=== PATIENT | female | born 1980 | race Asian ===

== ENCOUNTER 2020-10-17 11:36 | Outpatient (REF) | payer OTHER, SELFPAY ==
--- NOTE | ~2020-10-17 | MM_ITS ---
EXAMINATION: MM SCREENING DIGITAL BREAST TOMOSYNTHESIS, BILATERAL CLINICAL INFORMATION: Screening. Asymptomatic. Age 39. No known family history breast cancer. The lifetime risk of breast cancer based on the Tyrer-Cuzick Model is 10%. COMPARISON: Outside right mammography and right breast ultrasound 10/19/2017 ([facility]). Images from outside right breast ultrasound-guided biopsy(10/30/2017, [facility]). TECHNIQUE: Digital breast tomosynthesis is performed in both the craniocaudal and mediolateral oblique views along with computer-aided detection (CAD). Synthesized 2D images are generated from the tomosynthesis. Additional right MLO view is provided. FINDINGS: The breasts are heterogeneously dense, which may obscure small masses (ACR BI-RADS breast composition Category c). There is no significant mass or architectural abnormality or abnormal calcifications. No biopsy clip marker again demonstrated. The axilla and skin contours are unremarkable. MM/MM tomosynthesis screening BI IMPRESSION: No mammographic evidence of malignancy. ASSESSMENT: BI-RADS 1: Negative RECOMMENDATION: Routine annual mammography screening. This patient's information was entered into a reminder system with a target due date for their next mammogram.
== END 2020-10-17 11:37 | disposition home or self-care (01) ==
LOC: HO.MAMMO 11:36
PROVIDERS: Visit Provider Nurse Practitioner Family
DX: Z12.31 Encounter for screening mammogram for malignant neoplasm of breast (principal)
CPT/HCPCS: 77063; 77067

== ENCOUNTER 2023-04-01 09:38 | Outpatient (REF) | payer OTHER, SELFPAY ==
[2023-04-01 11:25] LABS: MANUAL DIFF FLAG NO
[2023-04-01 11:27] LABS: Basophils Percent Auto 0.7 % (0-2); Eosinophils Absolute Auto 0.2 X10*3/uL (0.0-0.4); Hematocrit 39.2 % (37.0-47.0); Hemoglobin 13.1 g/dl (12.0-16.0); Imm Gran Abs Auto 0.01 X10*3/uL (0.00-0.03); Imm Gran Pct Auto 0.2 % (0.0-0.4); Lymphocytes Absolute Auto 1.3 X10*3/uL (1.2-4.9); Lymphocytes Percent Auto 31.8 % (20-40); Mean Corpuscular HGB Conc 33.4 g/dl (31.0-35.0); Mean Corpuscular Hemoglobin 27.8 pg (27.0-33.0); Mean Corpuscular Volume 83.2 fL (80.0-98.0); Mean Platelet Volume 10.1 fL (9.4-12.3); Monocytes Absolute Auto 0.3 X10*3/uL (0.1-1.2); Monocytes Percent Auto 6.9 % (2-11); Neutrophils Absolute Auto 2.4 x10*3/uL (2.0-8.3); Neutrophils Percent Auto 56.4 % (45-73); Platelet Count 209 X10*3/uL (160-400); Red Blood Count 4.71 X10*6/uL (4.20-5.50); Red Cell Distribution Width 12.1 % (11.0-16.0); White Blood Count 4.2 X10*3/uL (4.8-10.8)
[2023-04-01 11:37] LABS: Estimated Average Glucose 108 mg/dL; Hemoglobin A1c % 5.4 %
[2023-04-01 12:10] LABS: Syphilis Screen Nonreactive (Nonreactive)
[2023-04-01 12:16] LABS: ~Hepatitis C Antibody Nonreactive (Nonreactive)
[2023-04-01 12:25] LABS: HBS Num1 593.33 mIU/mL (0-7.99); HBc Num1 6.11 S/CO (0.00-0.79); HBsAGNum1 0.41 S/CO (0.00-0.99); HIV AB/AG Nonreactive (Nonreactive); HIV Num 1 0.05 S/CO (0.00-0.99); Hepatitis B Surface Antigen Negative (Negative); ~Hepatitis B Surface Antibody REACTIVE (Nonreactive)
[2023-04-01 12:27] LABS: Alanine Aminotransferase 14 U/L (0-31); Albumin Level 4.3 g/dL (3.5-5.0); Alkaline Phosphatase 59 U/L (39-117); Anion Gap 11 (12-20); Aspartate Amino Transferase 19 U/L (5-31); Bilirubin Total 0.5 mg/dL (0.0-1.0); Blood Urea Nitrogen 17 mg/dL (9-16); Calcium 9.1 mg/dL (8.4-10.2); Carbon Dioxide 24 mmol/L (22-29); Chloride 107 mmol/L (96-108); Cholesterol 194 mg/dL; Estimated Glomerular Filt Rate > 60; Glucose Random 89 mg/dL (60-115); HDL Cholesterol 83 mg/dL; LDL Cholesterol Calculated 100 mg/dl; Potassium 3.9 mmol/L (3.3-5.1); Sodium 138 mmol/L (135-145); TSH reflex Free T4 1.85 uIU/mL (0.32-4.0); Triglycerides 56 mg/dL
[2023-04-01 13:25] LABS: HBc Num2 6.21 S/CO; HBc Num3 6.12 S/CO; Hepatitis B Core Antibody Reactive (Nonreactive)
[2023-04-01 18:23] LABS: CT PCR NOT DETECTED (Not Detect.); NG PCR NOT DETECTED (Not Detect.)
== END 2023-04-01 09:39 | disposition home or self-care (01) ==
LOC: HO.HHCL 09:38
PROVIDERS: Visit Provider Student in an Organized Health Care Education/Training Program
DX: Z00.00 Encounter for general adult medical examination without abnormal findings (principal)
CPT/HCPCS: 0353U; 80053; 80061; 83036; 84443; 85025; 86704; 86706; 86780; 86803; 87340; 87389

== ENCOUNTER 2024-04-01 16:27 | Outpatient (REF) | payer OTHER, SELFPAY ==
[2024-04-02 06:31] LABS: CT PCR NOT DETECTED (Not Detect.); NG PCR NOT DETECTED (Not Detect.)
== END 2024-04-01 16:28 | disposition home or self-care (01) ==
LOC: HO.HHCLNP 16:27
PROVIDERS: Visit Provider Student in an Organized Health Care Education/Training Program
DX: Z00.00 Encounter for general adult medical examination without abnormal findings (principal)
CPT/HCPCS: 87491; 87591

== ENCOUNTER 2024-06-08 11:59 | Outpatient (REF) | payer OTHER, SELFPAY ==
--- NOTE | ~2024-06-08 | MM_ITS ---
EXAMINATION: MM SCREENING DIGITAL BREAST TOMOSYNTHESIS, BILATERAL CLINICAL INFORMATION: Screening. Asymptomatic. COMPARISON: Mammography: Comparison is made with available priors TECHNIQUE: Digital breast mammography with tomosynthesis is performed in both the craniocaudal and mediolateral oblique views along with computer-aided detection (CAD). FINDINGS: The breasts are heterogeneously dense, which may obscure small masses (ACR BI-RADS breast composition Category c). There are no significant masses, abnormal calcifications, or other abnormalities. MM/MM tomosynthesis screening BI IMPRESSION: No mammographic evidence of malignancy. ASSESSMENT: BI-RADS BI-RADS 1 - Negative RECOMMENDATION: Routine annual mammography screening. 1 year F/U This examination should not preclude the clinical evaluation of a suspicious palpable abnormality. This patient's information was entered into a reminder system with a target due date for their next mammogram. Electronically signed by: Julia Mccarthy DO 06/20/2024 04:15 PM HALLE
== END 2024-06-08 12:00 | disposition home or self-care (01) ==
LOC: HO.MAMMO 11:59
PROVIDERS: PCP Student in an Organized Health Care Education/Training Program; Visit Provider Student in an Organized Health Care Education/Training Program
DX: Z12.31 Encounter for screening mammogram for malignant neoplasm of breast (principal)
CPT/HCPCS: 77063; 77067

== ENCOUNTER → 2024-06-08 12:01 | Outpatient (BNV) | payer OTHER, SELFPAY | PROVIDERS: PCP Student in an Organized Health Care Education/Training Program; Visit Provider Internal Medicine | DX: Z12.31 Encounter for screening mammogram for malignant neoplasm of breast (principal) | CPT/HCPCS: 77063; 77067 ==

== ENCOUNTER 2024-09-19 11:33 | Outpatient (REF) | payer OTHER, SELFPAY ==
--- OUTSIDE RECORDS SUMMARY | 2024-09-19 12:53 | XMS_ITS | Encounter Summary ---
Author Organization [employer] Address [address] [place] [address] [place] [address] Care Team Providers Care Special Procedure Technologist Name Role Phone Farhana Jordan MD Primary Care Pro vider Reason for Visit * Reason Onset Date Comments Nurse Triage 08/31/2024 Encounter Details Date Type Department Care Team ([facility] st Contact Info) Description 08/31/[address] [facility] MEDICINE [address], [place] [phone] Farhana Jordan MD [address] [place] [address] Nurse Triage Social History Tobacco Use Types Packs/Day Years Used Date Smoking Tobacco: Never Passive Smoke Exposure: Never Smokeless Tobacco: Never Alcohol Use Standard Drinks/Week Comments Yes 0 (1 standard drink = 0.6 oz pur e alcohol) social Depression Answer Date Recorded Patient Health Questionnaire-9 Score 0 03/23/2023 Housing Stability Answer Date Recorded What is your housing situation today? I have janine glover 04/01/[address] you li ve. Do you have problems with any of the following? None of the above 04/01/2024 Food Insecurity Answer Date Recorded Within the past 12 months, y ou worried that your food would run out before you got money to buy more: Never True 03/22/2024 Within the past 12 months,th e food you bought just didn't last and you didn't have enough money to get more: Never True 01/2024 Transportation Answer Date Recorded In the past 12 months, has l ack of transportation kept you from medical appts, meetings, work or from getting things needed for daily living? No 03/22/2024 Utilities Answer Date Recorded In the past 12 months, has t he electric, gas, oil or water company threatened to shut off services in your home? No 03/22/2024 Depression Answer Date Recorded Patient Health Questionnaire-2 Score 0 03/23/2023 Internet Access Answer Date Recorded Internet Access Q1 Yes 04/18/2024 Internet Access Q2 Not on file 04/18/2024 Comments Unknown Sex and Gender Information Value Date Recorded Sex Assigned at Female 06/16/2022 10:28 AM EDT Legal Sex Female 10:28 AM EDT Gender Identity Female 06/16/2022 10:28 AM EDT Sexual Orientation Straight 03/23/2023 9 :43 AM EDT documented as of this encounter Miscellaneous Notes * Telephone Encounter - Amber Rai RN - 08/31/2024 2:13 PM EST called pt to triage, spoke to pt. pt states having a lot of intense itching all over her skin. pt states her dog has similar skin issues and thinks she got it from him. pt denies signs of fleas or other associated concerns. pt denies actual rash, open areas, or fevers. given appt Thursday with blue team provider at 3:00 for exam. advised home care: rest, cool compresses, and OTC anti itch cream. also advised to avoid new products or strong soaps. pt understands and agrees with plan. insurance verified. Protocol Used: Itching - Widespread (Adult) Protocol-Based Disposition: See in Office or Video Visit within 3 Days Video visit offer not recorded Positive Triage Question: * Widespread itching and cause unknown and present > 48 hours * All higher-acuity triage questions were negative Care Advice Discussed: * Reassurance and Education - Widespread Itching * Reassurance and Education - Itching From Dry Air * Don't Scratch * Avoid Soaps * Avoid Triggers * Moisturize the Skin With Lotion * Reducing the Itch - Oatmeal (Aveeno) Bath * Antihistamine Medicines for Severe Itching * Reasons To Call Back - Rash occurs - Itching becomes worse or lasts over 48 hours - You become worse * Telephone Encounter - Adeline Garcia - 08/31/2024 1:06 PM EST Symptom: Skin Infection, Itching, Bleeding (when scratch) - Caller Reports Outcome: Schedule a same-day appointment or talk to a nurse or provider today Reason: Caller denied all higher acuity questions The caller accepted this outcome. [phone] documented in this encounter Plan of Treatment Upcoming Encounters Date Type Department Care Team (Late st Contact Info) Description 09/30/2024 1:45 PM EST Office Visit [facility] MEDICINE [address], [place] [phone] Maribeth Luther FNP [address] [place], [place] [phone] documented as of this encounter Visit Diagnoses Not on filedocumented in this encounter Additional Health Concerns Assessment Noted Time PHQ-9 Depression Total Score: 0 03/23/20 9:28 AM EDT documented as of this encounter Care Teams Special Procedure Technologist Relationship Specialty Start Date End Date Farhana Jordan MD [address] [place], [place] [phone] PCP - General Internal Medicine 02/11/23 documented as of this encounter
--- OUTSIDE RECORDS SUMMARY | 2024-09-19 12:53 | XMS_ITS | Encounter Summary ---
Author Organization [employer] Address [address] [place] [address] Care Team Providers Care Partnership Marketing Manager Name Role Phone Farhana Jordan MD Primary Care Pro vider Encounter Details Date Type Department Care Team (Latest Contact Info) Description 09/19/2024 Travel Social History Tobacco Use Types Packs/Day Years Used Date Smoking Tobacco: Never Passive Smoke Exposure: Never Smokeless Tobacco: Never Alcohol Use Standard Drinks/Week Comments Yes 0 (1 standard drink = 0.6 oz pur e alcohol) social Depression Answer Date Recorded Patient Health Questionnaire-9 Score 0 03/23/2023 Housing Stability Answer Date Recorded What is your housing situation today? I have janine belen 04/01/[address] you li [...] 10:28 AM EDT Sexual Orientation Straight 03/23/2023 9: 43 AM EDT documented as of this encounter Plan of Treatment Upcoming Encounters Date Type Department Care Team (Late st Contact Info) Description 09/30/2024 1:45 PM EST Office Visit [facility] MEDICINE [address] [place], [place] [phone] Maribeth Luther FNP [address] [place], [place] [phone] documented as of this encounter Visit Diagnoses Not on filedocumented in this encounter Additional Health Concerns Assessment Noted Time PHQ-9 Depression Total Score: 0 03/23/20 9:28 AM EDT documented as of this encounter Care Teams Partnership Marketing Manager Relationship Specialty Start Date End Date Farhana Jordan MD [address] [place], [place] [phone] PCP - General Internal Medicine 02/11/23 documented as of this encounter
--- OUTSIDE RECORDS SUMMARY | 2024-09-19 12:53 | XMS_ITS | Encounter Summary ---
Author Organization [employer] Address [address] [place] [address] 7t [place] [address] Care Team Providers Care Hereditary Cancer Program Coordinator Name Role Phone Farhana Jordan MD Primary Care Pro vider Reason for Visit * Reason Comments Itching Encounter Details Date Type Department Care Team ([facility] st Contact Info) Description 09/02/2024 3:00 PM EST Office Visit [facility] MEDICINE [address] [place] [address] Maribeth Luther FNP [address] [place] [address] Flea bite, initial encounter (Primary Dx); Wart of hand; Tinea manus Social History Tobacco Use Types Packs/Day Years [...] AM EDT documented as of this encounter Last Filed Vital Signs Vital Sign Reading Time Taken Comments Blood Pressure 109/63 09/02/2024 3:15 PM EST Pulse 76 09/02/2024 3:15 PM EST Temperature 36.9 ??C (98.4 ??F) 09/02/2024 3:15 PM ES T Respiratory Rate 16 09/02/2024 3:15 PM EST Oxygen Saturation 99% 09/02/2024 3:15 PM EST Inhaled Oxygen Concentration - - Weight 64 kg (141 lb 3.2 oz) 09/02/2024 3:15 PM EST Height - - Body Mass Index 25.01 04/01/2024 11:11 AM EDT documented in this encounter Progress Notes * MERARY Piper - 09/02/2024 3:00 PM EST Omero Cheng is a 43 y.o. female who presents for a acute visit. Patient presents to the clinic with report of itchy skin that started on both hand but spread to other parts of the body including bilateral lower extremity. She reports the skin starts with an itchywhich later develops into little bump with fluid which opens up after scratching. Reports the bumpsfirst appeared approximately 2 months ago but has gotten worse. The pruritic lesions started after caring for her 2 dogs infested with fleas and believes her symptoms are from flea bites while treating and bathing he dogs. Reports her dogs are infested by fleas and had opened skin related to intense scratching. Denies nobody else in the house have similar lesions. Omero apply regular body lotio n with no no relief. She reports one of the dogs is flea free while the other is still being treated. Denies fever, nausea. tenderness, swollen lymph nodes or known insect bites. Denies new food, perfume, body cream, detergent, clothing or food. At this visit also present with a pea size rough dome shaped bump on the third finger bed of the right hand and thick skin at the side of same finger. Reports she had used OTC topical salicylic with some effect and also cut the skin but grows back . Same nail also presents with fungal infection which she denies using any medication Patient Active Problem List Diagnosis Healthcare maintenance Bilateral bunions Amenorrhea Wart of hand Tinea manus Flea bite No Known Allergies Current Outpatient Medications: cephalexin (Keflex) 500 MG capsule, Take 1 capsule (500 mg) by mouth 2 times daily for 7 days., Disp: 14 capsule, Rfl: 0 hydrocortisone 2.5 % cream, Apply topically if needed for rash. Apply a small amount to individual lesions, Disp: 28 g, Rfl: 0 ketoconazole (NIZOral) 2 % cream, Apply topically Once per day for 14 days., Disp: 28 g, Rfl: 0 salicylic acid-lactic acid 17 % external solution, Apply topically Once per day., Disp: 10 mL, Rfl:1 Review of Systems Constitutional: Negative for appetite change, chills and fever. HENT: Negative for sore throat. Respiratory: Negative for cough, shortness of breath and wheezing. Cardiovascular: Negative for chest pain, palpitations and leg swelling. Skin: Positive for rash. Pruritic rash Neurological: Negative for dizziness and weakness. Psychiatric/Behavioral: Negative for sleep disturbance and suicidal ideas. Vitals: 09/02/24 1515 BP: 109/63 Pulse: 76 Resp: 16 Temp: 98.4 ??F (36.9 ??C) TempSrc: Oral SpO2: 99% Weight: 141 lb 3.2 oz (64 kg) Physical Exam Constitutional: General: She is not in acute distress. Appearance: She is normal weight. She is not ill-appearing. Cardiovascular: Rate and Rhythm: Normal rate. Pulses: Normal pulses. Pulmonary: Effort: Pulmonary effort is normal. Breath sounds: Normal breath sounds. No wheezing. Skin: General: Skin is warm. Findings: Erythema and lesion present. Neurological: General: No focal deficit present. Mental Status: She is alert and oriented to person, place, and time. Psychiatric: Mood and Affect: Mood normal. Behavior: Behavior normal. Problem List Items Addressed This Visit Wart of hand Current Assessment & Plan Pea size rough dome shaped bump on the finger bed of the right hand with tiny black dots Plan Apply salicylic acid to wart as prescribed Wash hands regularly Do not bite nails or pick at your curticles Wear protective gloves if you have your hands in water for a long period. Do not share personal items like towels or nail clippers Return in 4 weeks for cryotherapy Relevant Medications salicylic acid-lactic acid 17 % external solution Tinea manus Relevant Medications ketoconazole (NIZOral) 2 % cream Flea bite - Primary Current Assessment & Plan Small raised erythematous pruritic lesions in clusters of two or more lesions Vesicular papules in Breakfast, lunch, and dinner pattern on upper and lower extremities. Open blisters with bite center.No oozing, tenderness or pain surrounding the bite area. Plan Wash affected area with water and mild soap Apply cream as prescribed Avoid scratching the bites Take your pet to see the vet for flea treatment Get rid of fleas from the home Call the office if you experience fever, lymphadenitis, and feeling worse Follow up in 3-4 weeks Relevant Medications cephalexin (Keflex) 500 MG capsule hydrocortisone 2.5 % cream [facility] STEEL [employer] BUSTER Attestation STEEL [employer] BUSTER Resident Attestation: Patient was seen and evaluated by Maribeth REAGAN , in collaboration with Phoebe REAGAN who has reviewed my assessment and plan. I, Phoebe REAGAN, have reviewed the resident's note and agree with the assessment & plan of care as documented above. documented in this encounter Miscellaneous Notes * Assessment & Plan Note - MERARY Piper - 09/03/2024 9:28 AM ESTAssociated Problem(s): Tinea manus Apply medication as prescribed * Assessment & Plan Note - MERARY Piper - 09/03/2024 9:12 AM ESTAssociated Problem(s): Wart of hand Pea size rough dome shaped bump on the finger bed of the right hand with tiny black dots Plan Apply salicylic acid to wart as prescribed Wash hands regularly Do not bite nails or pick at your curticles Wear protective gloves if you have your hands in water for a long period. Do not share personal items like towels or nail clippers Return in 4 weeks for cryotherapy * Assessment & Plan Note - MERARY Piper - 09/03/2024 8:40 AM ESTAssociated Problem(s): Flea bite Small raised erythematous pruritic lesions in clusters of two or more lesions Vesicular papules in Breakfast, lunch, and dinner pattern on upper and lower extremities. Open blisters with bite center. No oozing, tenderness or pain surrounding the bite area. Plan Wash affected area with water and mild soap Apply cream as prescribed Avoid scratching the bites Take your pet to see the vet for flea treatment Get rid of fleas from the home Call the office if you experience fever, lymphadenitis, and feeling worse Follow up in 3-4 weeks documented in this encounter Plan of Treatment Upcoming Encounters Date Type Department Care Team (Late st Contact Info) Description 09/30/2024 1:45 PM EST Office Visit [facility] MEDICINE [address] [place] [address] Maribeth Luther FNP [address] [place] [address] documented as of this encounter Visit Diagnoses Diagnosis Flea bite, initial encounter- Primary Wart of hand Tinea manus Dermatophytosis of hand documented in this encounter Additional Health Concerns Assessment Noted Time PHQ-9 Depression Total Score: 0 03/23/20 9:28 AM EDT documented as of this encounter Care Teams Hereditary Cancer Program Coordinator Relationship Specialty Start Date End Date Farhana Jordan MD [address] [place] [id number] PCP - General Internal Medicine 02/11/23 documented as of this encounter
--- OUTSIDE RECORDS SUMMARY | 2024-09-19 12:53 | XMS_ITS | Encounter Summary ---
Author Organization [employer] Address [address] [place] [address] [place] [address] Care Team Providers Care Talent Acquisition Sourcer Name Role Phone Farhana Jordan MD Primary Care Pro vider Reason for Visit * Reason Onset Date Comments Nurse Triage 09/19/2024 Encounter Details Date Type Department Care Team ([facility] st Contact Info) Description 09/19/2024 Telephone [facility] MEDICINE [address] [place], [place] [phone] Farhana Jordan MD [address] [place] [address] Nurse Triage Social History Tobacco Use Types [...] encounter Miscellaneous Notes * Telephone Encounter - Maisha Davis LPN - 09/19/2024 9:20 AM EST Triage call returened to patient who reports worsening itchiness and spreading areas on all over on body. Previousy seen for Flea bites and current treatment is not helping. Patient is penind callfrom Dermatology but skin now open and bleeding. Patient reports dogs in home are clear post treatment and that it is only her that has bites. Reports that she treated the home as well. no affected. Disposition reviewed and patient in agreement with plan.ASK/ at 1045am. Protocol Used: Rash or Redness - Widespread (Adult) Protocol-Based Disposition: See in Office or Video Visit Today Video visit not offered Positive Triage Questions: * Severe itching * Patient wants to be seen * All higher-acuity triage questions were negative Care Advice Discussed: * Reasons To Call Back - You become worse * Telephone Encounter - Lefyt Jordan - 09/19/2024 8:36 AM EST TC from pt reports was seen for skin itchiness on 09/02 with [employer] Maribeth . Pt states hydrocortisone 2.5 % cream is not working and symptoms are worsening . Pt skin now is bleeding . documented in this encounter Plan of Treatment Upcoming Encounters Date Type Department Care Team (Late st Contact Info) Description 09/30/2024 1:45 PM EST Office Visit [facility] MEDICINE [address] [place], [place] [phone] Maribeth Luther FNP [address] [place], [place] [phone] documented as of this encounter Visit Diagnoses Not on filedocumented in this encounter Additional Health Concerns Assessment Noted Time PHQ-9 Depression Total Score: 0 03/23/20 9:28 AM EDT documented as of this encounter Care Teams Talent Acquisition Sourcer Relationship Specialty Start Date End Date Farhana Jordan MD [address] [place], [place] [phone] PCP - General Internal Medicine 02/11/23 documented as of this encounter
--- OUTSIDE RECORDS SUMMARY | 2024-09-19 12:53 | XMS_ITS | Encounter Summary ---
Author Organization [employer] Address [address] [place] [address] 7 [place] [address] Care Team Providers Care Remedial Teacher Name Role Phone Farhana Jordan MD Primary Care Pro vider Reason for Referral * Consultation (Routine) - Authorized Specialty Diagnoses / Procedures Referred By Perfecto flannery Referred To Contact Family Medicine Diagnoses yuki Cummins [place], FNP [address] [place] [address] Phone: tel: fax: Referral ID Status Reason Start Date Expiration Date Visits Requested Visits Authorized [id number] Authorized Specialty Services Required 09/15/2024 09/15/2025 1 1 Encounter Details Date Type Department Care Team ([facility] st Contact Info) Description 09/15/2024 Orders Only [facility] MEDICINE [address] [place] [address] Maribeth Luther FNP [address] [place] [address] yuki Cummins (Primary Dx) Social History Tobacco Use Types Packs/Day Years [...] AM EDT documented as of this encounter Progress Notes * MERARY Piper - 09/15/2024 11:00 AM EST Patient calling to report completion of treatment but no improvement. Lesions are still all over the bite area with drainage. Referred to dermatology documented in this encounter Plan of Treatment Upcoming Encounters Date Type Department Care Team (Late st Contact Info) Description 09/30/2024 1:45 PM EST Office Visit [facility] MEDICINE [address] [place] [address] Maribeth Luther FNP [address] [place], [place] [phone] Scheduled Referrals Name Type Priority Associated Diagnoses Orde r Schedule Referral to [facility] Derm Skin Adult Outpatient Referral Routine Flea bite, sequela Expected: 09/15/2024 (Approximate), Expires: 09/15/2025 documented as of this encounter Visit Diagnoses Diagnosis Flea bite, sequela- Primary documented in this encounter Additional Health Concerns Assessment Noted Time PHQ-9 Depression Total Score: 0 03/23/20 23 9:28 AM EDT documented as of this encounter Care Teams Remedial Teacher Relationship Specialty Start Date End Date Farhana Jordan MD [address] [place] [address] PCP - General Internal Medicine 02/11/23 documented as of this encounter
--- OUTSIDE RECORDS SUMMARY | 2024-09-19 12:53 | XMS_ITS | Clinical Summary ---
Author Organization [employer] Address [address] [place] [address] 7t [place] [address] Care Team Providers Care Manager Of Case Management Name Role Phone Farhana Jordan MD Primary Care Pro vider Allergies No known active allergies Medications salicylic acid-lactic acid 17 % external solutionIndica tions:Wart of hand Apply topically Once per day. 10 mL 1 5 10/02/19 25 Active triamcinolone (Kenalog) 0.1 % creamIndicatio ns:Rash Apply topically if needed in the morning and at bedtime (pain and swelling). 30 g 2 5 Active mupirocin (Bactroban) 2 % ointmentIndica tions:Rash Apply topically 3 times daily for 10 days. 22 g 5 09/29/19 25 Active diphenhydrAMIN E (BENADryl) 25 MG tabletIndicati ons:Itching Take 1 tablet (25 mg) by mouth if needed at bedtime for itching. 30 tablet 5 10/20/19 25 Active cephalexin (Keflex) 500 MG capsuleIndicat ions:Flea bite, initial encounter Take 1 capsule (500 mg) by mouth 2 times daily for 7 days. 14 capsule 5 09/09/19 25 ketoconazole (NIZOral) 2 % creamIndicatio ns:Tinea manus Apply topically Once per day for 14 days. 28 g 5 09/16/19 25 hydrocortisone 2.5 % creamIndicatio ns:Flea bite, initial encounter Apply topically if needed for rash. Apply a small amount to individual lesions 28 g 5 09/19/19 25 Discontinu ed(Alterna te therapy) Active Problems Problem Noted Date Diagnosed Date Flea bite 09/03/2024 Assessment & Plan (09/03/2024 8:40 AM EST): Small raised erythematous pruritic lesions in clusters [...] feeling worse Follow up in 3-4 weeks Wart of hand 09/02/2024 Assessment & Plan (09/03/2024 9:26 AM EST): Pea size rough dome shaped bump on [...] clippers Return in 4 weeks for cryotherapy Tinea manus 09/02/2024 Assessment & Plan (09/03/2024 9:28 AM EST): Apply medication as prescribed Amenorrhea 04/01/2024 Healthcare maintenance 03/24/2023 Assessment & Plan (04/25/2023 12:27 PM EDT): -Per pt had neg TB test years ago -Pap Smear 09/2020: neg / neg HPV. Denies Hx of abnormal Pap smear, to repeat in 5 y from last one. -MM: 10/2020: dense BIRADS 1. The lifetime risk of breast cancer based on the Tyrer-Cuzick Model is 10%. -MM: Referred already, pending to have image. I will call pt w result, otherwise pt will call clinic 1 wk after test is done to go over report. -Vaccines: s/p Covid x2, Biv x1, Tdap 2022, HPV x1 08/2020 - gave info of vaccine clinic if interested in completing HPV vaccination series. Prescribed today to our pharmacy by pt request. -Referred to forestry laborer for annual eye exam - pending to schedule apt. ------ -03/2023 WBC 4.2 (ANC 2.4k) w normal Hb and PLT - pt will return to lab in 3 mo to repeat CBC to monitor slightly low WBC ---I will call pt w result, otherwise pt will call clinic 1 wk after test is done to go over results. Assessment & Plan (03/24/2023 6:23 AM EDT): -Per pt had neg TB test years ago -Pap Smear 09/2020: neg / neg HPV. Denies Hx of abnormal Pap smear, to repeat in 5 y from last one. -MM: 10/2020: dense BIRADS 1. The lifetime risk of breast cancer based on the Tyrer-Cuzick Model is 10%. -MM: Referred today. -labs x annual exam will RTC in fasting -pt agreed to have STI testing including HIV to have for baseline -Vaccines: s/p Covid x2, Biv x1, Tdap today, HPV x1 08/2020 - gave info of vaccine clinic if interested in completing HPV vaccination series. -Referred to forestry laborer today for annual eye exam Bilateral bunions 03/24/2023 Assessment & Plan (04/25/2023 12:23 PM EDT): Bilateral bunions causing pain. -Advise to avoid high heels and tight shoes. -Referred to child care center administrator - pt pending to call for apt. Assessment & Plan (03/24/2023 6:23 AM EDT): Bilateral bunions causing pain. -Advise to avoid high heels and tight shoes. -Referred to child care center administrator today. Encounters Date Type Department Care Team Description 09/19/2024 10:45 AM EST Office Visit [facility] [address] [place] [phone] Sindhu Walker MD Rash (Primary Dx); Itching 09/19/2024 Travel 09/19/2024 Telephone [facility] [address] [place] [address] Farhana Jordan MD Nurse Triage 09/15/2024 Orders Only [address] [address] Maribeth Luther FNP Flea bite, sequela (Primary Dx) 09/13/[address] [address] Farhana Jordan MD Medication Question 09/02/2024 3:00 PM EST Office Visit [address] [address] Maribeth Luther, MERARY Flea bite, initial encounter (Primary Dx); Wart of hand; Tinea manus 08/31/[address] [address] Farhana Jordan MD Nurse Triage 07/12/[address] [address] Kendy Sanders MA chart prep from Last 3 Months Immunizations Name Administration Dates Next Due HPV 9-Valent 09/04/2020 Influenza injectable quadriv alent IIV4 with preservative 06/07/2020 Influenza injectable quadrivalent preservative f ree 07/31/2022,05/17/2020 Tdap 03/23/2023 Family History Medical History Relation Name Comments HTN Father Relation Name Status Comments Father Social History Tobacco Use Types Packs/Day Years Used Date Smoking Tobacco: Never Passive Smoke Exposure: Never Smokeless Tobacco: Never Tobacco Cessation:Counseling Given: Not Answered Alcohol Use Standard Drinks/Week Comments Yes 0 (1 standard drink = 0.6 oz pur e alcohol) social Depression Answer Date Recorded Patient Health Questionnaire-9 Score 0 03/23/2023 Housing Stability Answer Date Recorded What is your housing situation today? I have janinevianey glover 04/01/[address] you [...] Orientation Straight 03/23/2023 9: 43 AM EDT Last Filed Vital Signs Vital Sign Reading Time Taken Comments Blood Pressure 126/80 09/19/2024 10:56 AM EST Pulse 73 09/19/2024 10:56 AM EST Temperature 36.7 ??C (98 ??F) 09/19/2024 10:56 AM EST Respiratory Rate 20 09/19/2024 10:56 AM EST Oxygen Saturation 98% 09/19/2024 10:56 AM EST Inhaled Oxygen Concentration - - Weight 61.8 kg (136 lb 3.2 oz) 09/19/2024 10:56 AM EST Height 165.1 cm (5' 5 ) 09/19/2024 10:56 AM EST Body Mass Index 22.66 09/19/2024 10:56 AM EST Plan of Treatment Upcoming Encounters Date Type Department Care Team (Late st Contact Info) Description 09/30/2024 1:45 PM EST Office Visit [facility] [address] [place] [address] Maribeth Luther FNP [address] [place] [address] Health Maintenance Due Date Last Done Comments Alcohol/Substance Use Screening 1992 Family Planning (PISQ) 11/17/1995 Hepatitis B Vaccines (1 of 3 - 19+ 3-dose series) 11/17/1999 HPV Vaccines (2 - 3-dose SCDM series) 10/02/2020 09/04/2020 Pap Smear 09/21/2023 09/21/2020 Depression Screening 03/23/2024 03/23/2023, 03/23/20 23 COVID-19 Vaccine ( season) 2024 08/03/2023, 07/31/2022, 06/30/2021, Additional history exists Influenza Vaccine (#1) 2024 , 06/07/2020, 05/17/2020 SDOH Screening 03/22/2025 03/22/2024 Tobacco Screening 09/19/2025 09/19/2024 Cervical Cancer Screening 09/21/2025 HPV/Cotest 09/21/2025 09/21/2020 Mammogram 06/08/2026 06/08/2024, 03/0 10/2020, 10/17/2020 Zoster Vaccines (1 of 2) 2030 DTaP/Tdap/Td Vaccines (2 - Td or Tdap) 03/23/2033 03/23/2023 RSV Patients and Patients Aged 60 years or older (1 - 1-dose 75+ series) 11/17/2055 HIV Screening Completed 04/01/2023 Hepatitis C Screening Completed 04/01/2023 HIB Vaccines Aged Out No longer eligi ble based on patient's age to complete this topic Hepatitis A Vaccines Aged Out No long er eligible based on patient's age to complete this topic IPV Vaccines Aged Out No longer eligi ble based on patient's age to complete this topic Meningococcal Vaccine Aged Out No shaun bettina eligible based on patient's age to complete this topic Pneumococcal Vaccine: Pediatrics (0 to 5 Years) and At-Risk Patients (6 to 49) Years) Aged Out No longer eligible based on patient's age to complete this topic RSV under 20 months Aged Out No longe r eligible based on patient's age to complete this topic Rotavirus Vaccines Aged Out No longer eligible based on patient's age to complete this topic Procedures Procedure Name Priority Date/Time Associated Diagnosis Comments BI MAMMOGRAM SCREENING TOMOSYNTHESIS BILATERAL Routine 06/08/2024 12:01 PM EDT Breast cancer screening by mammogram HEPATITIS C ANTIBODY REFLEX Routine 04/01/2023 9:45 AM EDT HIV ANTIBODY/ANTIGEN ([place] DPH) Routine 04/01/2023 9:45 AM EDT HPV MRNA E6/E7 Routine 09/21/2020 3:54 PM EST THINPREP PAP Routine 09/21/2020 3:54 PM EST from Last 3 Months or Most Recently Relevant to Health Maintenance Results * BI Mammogram Screening Tomosynthesis Bilateral (06/08/2024 12:01 PM EDT) Anatomical Region Laterality Modality Breast Bilateral Mammography 06/08/2024 12:0 1 PM EDT Narrative 06/20/2024 4:18 PM EST ? [facility] [place] ? [address] [place] [address] ? Mammography Report ? Signed ? Patient: ProsperOmero ?MR#: [id number] ? : 1980 ?Acct:[id number] ? Age/Sex: 43 / F ?ADM Date: 10/23/24 ? Loc: HO.MAMMO ? Attending Dr: Farhana Velasco MD ? Ordering Physician: Farhana Jordan MD ?Re ?? sults: 1Negative ? Date of Service: 06/08/24 ?Follow Up: 1 Year From Orig ?? inal Mammogram ? Procedure(s): MM tomosynthesis screening BI ?? Accession Number(s): [id number] ? cc: Farhana Jordan MD ? EXAMINATION: ?? MM SCREENING DIGITAL BREAST TOMOSYNTHESIS, BILATERAL ? CLINICAL INFORMATION: ? Screening. Asymptomatic. ? COMPARISON: ?? Mammography: Comparison is made with available priors ? TECHNIQUE: ?? Digital breast mammography with tomosynthesis is performed in both the ?? craniocaudal and mediolateral oblique views along with computer-aided ?? detection (CAD). ? FINDINGS: ?? The breasts are heterogeneously dense, which may obscure small masses ?? (ACR BI-RADS breast composition Category c). ? There are no significant masses, abnormal calcifications, or other ?? abnormalities. ? MM/MM tomosynthesis screening BI ?? IMPRESSION: ?? No mammographic evidence of malignancy. ? ASSESSMENT: ? BI-RADS BI-RADS 1 - Negative ? RECOMMENDATION: ?? Routine annual mammography screening. ? 1 year F/U ? This examination should not preclude the clinical evaluation of a ?? suspicious palpable abnormality. ? This patient's information was entered into a reminder system with a ?? target due date for their next mammogram. ? Electronically signed by: ??Julia Mccarthy DO ??06/20/2024 04:15 PM EST ?? RP ? Dictated By: ?Julia Mccarthy DO ? Signed By: ?<Electronically signed by Julia Mccarthy, DO in OV> ? 06/20/24 1615 ? DD/ 1201 ? TD/TT: 06/08/24 1225 ? Frame Bender: ? Procedure Note [place], Image - 06/20/[facility] [address] [place], [place] [address] Mammography Report Signed Patient: Omero ChengMR#: [id number] : 1980Acct:[id number] Age/Sex: 43 / FADM Date: 06/08/24 Loc: HO.MAMMO Attending Dr: Farhana Velasco MD Ordering Physician: Farhana Jordan sults: 1Negative Date of Service: 06/08/24Follow Up: 1 Year From Orig inal Mammogram Procedure(s): MM tomosynthesis screening BI Accession Number(s): [id number] cc: Farhana Jordan MD EXAMINATION: MM SCREENING DIGITAL BREAST TOMOSYNTHESIS, BILATERAL CLINICAL INFORMATION: Screening. Asymptomatic. COMPARISON: Mammography: Comparison is made with available priors TECHNIQUE: Digital breast mammography with tomosynthesis is performed in both the craniocaudal and mediolateral oblique views along with computer-aided detection (CAD). FINDINGS: The breasts are heterogeneously dense, which may obscure small masses (ACR BI-RADS breast composition Category c). There are no significant masses, abnormal calcifications, or other abnormalities. MM/MM tomosynthesis screening BI IMPRESSION: No mammographic evidence of malignancy. ASSESSMENT: BI-RADS BI-RADS 1 - Negative RECOMMENDATION: Routine annual mammography screening. 1 year F/U This examination should not preclude the clinical evaluation of a suspicious palpable abnormality. This patient's information was entered into a reminder system with a target due date for their next mammogram. Electronically signed by: Julia Mccarthy DO 06/20/2024 04:15 PM [facility] Dictated By: Julia Mccarthy DO Signed By: <Electronically signed by Julia Mccarthy DO in OV> 06/20/24 1615 DD/ 1201 TD/TT: 06/08/24 1225 Frame Bender: us Farhana Velasco MD IMG BI PROCEDURES Edited Result - Final * Hepatitis C Antibody Reflex (04/01/2023 9:45 AM EDT) Hepatitis C Antibody Nonreactive Nonreactive [facility] Comment:Antibodies to HCV no t detected; does not exclude early acuteHCV infection. 04/01/2023 9:45 AM EDT 04/01/2023 11:20 AM EDT us Farhana Velasco MD LAB BLOOD ORDERAB LES Final Result Performing Organization Address [facility]/ZIP Co de Phone Number [facility] [address] [place] [phone] * HIV Ab/Ag ([place] DPH) (04/01/2023 9:45 AM EDT) HIV AB/AG Nonreactive Nonreactive [facility] Comment:HIV-1 p24 Ag and/or HIV-1/HIV-2 Ab not detected.A test result that is nonreactive does not exclude thepossibility of exposure to or infection with HIV-1 and/orHIV-2. Nonreactive results in this assay for individualswith prior exposure to HIV-1 and/or HIV-2 may be due toantigen and antibody levels that are below the limit ofdetection of this assay.The [employer] Turret Lathe Tender HIV Ag/Ab Combo assay result andsupplemental assay results should be interpreted inconjunction with the patient's clinical presentation,history and other laboratory results. If the results areinconsistent with clinical evidence, additional testing issuggested to confirm the result. 04/01/2023 9:45 AM EDT 04/01/2023 11:20 AM EDT us Farhana Velasco MD LAB BLOOD ORDERAB LES Final Result Performing Organization Address [facility]/ZIP Co de Phone Number [facility] [address] [place] [phone] * THINPREP PAP (09/21/2020 3:54 PM EST) Clinical Information: None given [facility] COMMENT SEE COMMENT [facility] Comment: EXPLANATORY NOTE: ? The Pap is a screening test for cervical cancer. It is ?? not a diagnostic test and is subject to false negative ?? and false positive results. It is most reliable when a ?? satisfactory sample, regularly obtained, is submitted ?? with relevant clinical findings and history, and when ?? the Pap result is evaluated along with historic and ?? current clinical information. ?? Assistant Loan Processor : SEE COMMENT [facility] Comment: MXD, CT (ASCP) CT screening location: [address] ??[address] Interpretation/R esult: Negative for intraepithelial lesion or malignancy. [facility] LMP: NONE [facility]IV[facility] Prev. BX: NONE [facility]IV[facility] Prev. PAP: NONE [facility]IV[facility] SOURCE: None given [facility] Statement Of Adequacy: SEE COMMENT [facility] Comment: Satisfactory for evaluation. Endocervical/transformation zone component absent. Age and/or menstrual status not provided 09/21/2020 3:54 PM EST Niesha Zhou [facility] LAB PATHOLOGY ORDERABLES Final Result [facility] [address] * HPV mRNA E6/E7 (09/21/2020 3:54 PM EST) HPV nRNA E6/E7 Not Detected Not Detected [facility] Comment: Methodology: Personal Service Representative-Mediated Amplification This assay detects E6/E7 viral messenger RNA (mRNA) from 14 high-risk HPV types (16,18,31,33,35,39,45,51,52,56,58,59,66,68). ? The analytical performance characteristics of this assay have been determined by [employer]. The modifications have not been cleared or approved by the FDA. This assay has been validated pursuant to the CLIA regulations and is used for clinical purposes. ?? For additional information, please refer to http://education.[employer]/ZQC542y5 (This link if provided for information/ educational purposes only.) 09/21/2020 3:54 PM EST us Niesha Abelardo CAUSTIC PUMP OPERATOR LAB BLOOD ORDERABLES Final Res ult [facility] [address] from Last 3 Months or Most Recently Relevant to Health Maintenance Insurance [facility] Care Teams Manager Of Case Management Relationship Specialty Start Date End Date Farhana Jordan MD [address] [place] [phone] PCP - General Internal Medicine 02/11/23
--- OUTSIDE RECORDS SUMMARY | 2024-09-19 12:53 | XMS_ITS | Encounter Summary ---
Author Organization [employer] [facility] Address [address] [place] [address] [address] [place] [address] Care Team Providers Care Lacing Cutter Name Role Phone Nancy Francis Primary Care Provider [phone] Farhana Jordan MD Primary Care Pro vider Encounter Details Date Type Department Care Team (Latest Contact Info) Description 09/17/2021 Abstract [facility] Dental, Provider, DDS Social History Tobacco Use Types Packs/Day Years Used Date Smoking Tobacco: Never Assessed Comments Unknown Sex and Gender Information Value [...] Description 09/30/2024 1:45 PM EST Office Visit [facility] [address] [place] [address] Maribeth Luther FNP [address] [place] [address] documented as of this encounter Visit Diagnoses Not on filedocumented in this encounter Care Teams Lacing Cutter Relationship Specialty Start Date End Date Nancy Francis FNP [address] [place] [address] PCP - General Family Medicine 04/14/22 02/10/23 Farhana Jordan MD [address] [place] [phone] PCP - General Internal Medicine 02/11/23 documented as of this encounter
--- OUTSIDE RECORDS SUMMARY | 2024-09-19 12:53 | XMS_ITS | Encounter Summary ---
Author Organization [employer] Address [address] [place] [address] [place] [address] Care Team Providers Care Head Bander And Liner Operator Name Role Phone Farhana Jordan MD Primary Care Pro vider Reason for Visit * Reason Onset Date Comments Nurse Triage 06/01/2023 Encounter Details Date Type Department Care Team ([facility] st Contact Info) Description 06/01/2023 Telephone [facility] [address] [place], [place] [phone] Farhana Jordan MD [address] [place] [address] Nurse Triage Social History Tobacco Use Types Packs/Day Years Used Date Smoking Tobacco: Never Passive Smoke Exposure: Never Smokeless Tobacco: Never Alcohol Use Standard Drinks/Week Comments Yes 0 (1 standard drink = 0.6 oz pur e alcohol) social Depression Answer Date Recorded Patient Health Questionnaire-9 Score 0 03/23/2023 Housing Stability Answer Date Recorded What is your housing situation today? I have janine glover 06/01/[address] you li ve. Do you have problems with any of the following? None of the above 06/01/2023 Food Insecurity Answer Date Recorded Within the past 12 months, y ou worried that your food would run out before you got money to buy more: Never True 06/01/2023 Within the past 12 months,th e food you bought just didn't last and you didn't have enough money to get more: Never True Transportation Answer Date Recorded In the past 12 months, has l ack of transportation kept you from medical appts, meetings, work or from getting things needed for daily living? No 06/01/2023 Utilities Answer Date Recorded In the past 12 months, has t he electric, gas, oil or water company threatened to shut off services in your home? No 06/01/2023 Depression Answer Date Recorded Patient Health Questionnaire-2 Score 0 03/23/2023 Comments Unknown Sex and Gender Information Value Date Recorded Sex Assigned at Female 06/16/2022 10:28 AM EDT Legal Sex Female 10:28 AM EDT Gender Identity Female 06/16/2022 10:28 AM EDT Sexual Orientation Straight 03/23/2023 9: 43 AM EDT documented as of this encounter Miscellaneous Notes * Telephone Encounter - Anna Paulino - 06/01/2023 10:37 AM EDT Symptom: Vaginal Symptoms - Not Bleeding Outcome: Schedule an urgent appointment (within 1 hour) or talk to a nurse or provider soon Reason: pelvic pain, itching. The caller accepted this outcome documented in this encounter Plan of Treatment Upcoming Encounters Date Type Department Care Team (Late st Contact Info) Description 09/30/2024 1:45 PM EST Office Visit [facility] [address] [place] [address] Maribeth Luther FNP [address] [place] [address] documented as of this encounter Visit Diagnoses Not on filedocumented in this encounter Additional Health Concerns Assessment Noted Time PHQ-9 Depression Total Score: 0 03/23/20 23 9:28 AM EDT documented as of this encounter Care Teams Head Bander And Liner Operator Relationship Specialty Start Date End Date Farhana Jordan MD [address] [place] [address] PCP - General Internal Medicine 02/11/23 documented as of this encounter
--- OUTSIDE RECORDS SUMMARY | 2024-09-19 12:53 | XMS_ITS | Encounter Summary ---
Author Organization [employer] Address [address] [place] [address] [address] [place] [address] Care Team Providers Care Professor Of Geography Name Role Phone Farhana Jordan MD Primary Care Pro vider Reason for Visit * Reason Comments Sick Onsite skin bleeding itchin g and treatment not helping pending Derm Encounter Details Date Type Department Care Team (Late st Contact Info) Description 09/19/2024 10:45 AM EST Office Visit [facility] [address] [place], [place] [phone] Sindhu Walker MD [address] [place], [place] [phone] Rash (Primary Dx); Itching Social History Tobacco Use Types Packs/Day Years [...] Mass Index 22.66 09/19/2024 10:56 AM EST documented in this encounter Plan of Treatment Upcoming Encounters Date Type Department Care Team (Late st Contact Info) Description 09/30/2024 1:45 PM EST Office Visit [facility] [address] [place] [address] Maribeth Luther FNP [address] [place] [address] Scheduled Orders Name Type Priority Associated Diagnoses Orde r Schedule RPR (Monitor) with Reflex to??Titer Lab Routine Rash Expected: 09/19/2024, Expires: 09/19/2025 CBC auto differential Lab Routine Rash Expected: 09/19/2024 (Approximate), Expires: 09/19/2025 documented as of this encounter Visit Diagnoses Diagnosis Rash- Primary Rash and other nonspecific skin eruption Itching Unspecified pruritic disorder documented in this encounter Additional Health Concerns Assessment Noted Time PHQ-9 Depression Total Score: 0 03/23/20 9:28 AM EDT documented as of this encounter Care Teams Professor Of Geography Relationship Specialty Start Date End Date Farhana Jordan MD [address] [place] [phone] PCP - General Internal Medicine 02/11/23 documented as of this encounter
--- OUTSIDE RECORDS SUMMARY | 2024-09-19 12:53 | XMS_ITS | Encounter Summary ---
Author Organization [employer] Address [address] [place] [address] [place] [address] Care Team Providers Care Shank Threader Name Role Phone Farhana Jordan MD Primary Care Pro vider Reason for Visit * Reason Onset Date Comments Medication Question 09/13/2024 Encounter Details Date Type Department Care Team ([facility] st Contact Info) Description 09/13/2024 Telephone [facility] MEDICINE [address] [place], [place] [phone] Farhana Jordan MD [address] [place], [place] [phone] Medication Question Social History Tobacco Use Types Packs/Day Years [...] encounter Miscellaneous Notes * Telephone Encounter - Otilia Chaudhry RN - 09/15/2024 11:18 AM EST TC placed to pt to inform that a referral has been placed to [facility] D[facility] for further evaluation of ongoing open lesions and skin irritation. Pt agreeable to this plan of care and stated understanding. * Telephone Encounter - Otilia Chaudhry RN - 09/14/2024 10:05 AM EST TC placed to pt in regards to office visit on 09/02/2024 with MERARY Piper for notable and diagnosed flea bites. Pt states that she has taken the full course of the prescribed antibiotic Cephalexin (Keflex) 500 MG and also tried the topical hydrocortisone 2.5% cream with little to no effect. The pt is still experiencing the open lesions with notable drainage that the pt has seen increase in the past few days. Pain is minimal and it has not spread beyond the bite area. Pt advised that this information will be sent to MERARY Piper for review and advisement. * Telephone Encounter - Curt Polanco - 09/13/2024 4:12 PM EST Tc from pt requesting a callback in regards medication not functioning she will like PCP advised asshe will like a different medication. [phone] documented in this encounter Plan of Treatment Upcoming Encounters Date Type Department Care Team ([facility] st Contact Info) Description 09/30/2024 1:45 PM EST Office Visit [facility] MEDICINE [address] [place] [address] Maribeth Luther FNP [address] [place], [place] [phone] documented as of this encounter Visit Diagnoses Not on filedocumented in this encounter Additional Health Concerns Assessment Noted Time PHQ-9 Depression Total Score: 0 03/23/20 9:28 AM EDT documented as of this encounter Care Teams Shank Threader Relationship Specialty Start Date End Date Farhana Jordan MD [address] [place] [address] PCP - General Internal Medicine 02/11/23 documented as of this encounter
[2024-09-19 13:23] LABS: MANUAL DIFF FLAG NO
[2024-09-19 13:40] LABS: Basophils Percent Auto 0.8 % (0-2); Eosinophils Absolute Auto 0.2 X10*3/uL (0.0-0.4); Eosinophils Percent Auto 4.4 % (0-4); Hematocrit 38.5 % (37.0-47.0); Imm Gran Abs Auto 0.01 X10*3/uL (0.00-0.03); Imm Gran Pct Auto 0.2 % (0.0-0.4); Lymphocytes Absolute Auto 1.4 X10*3/uL (1.2-4.9); Mean Corpuscular HGB Conc 33.8 g/dl (31.0-35.0); Mean Corpuscular Hemoglobin 27.8 pg (27.0-33.0); Mean Corpuscular Volume 82.3 fL (80.0-98.0); Mean Platelet Volume 10.3 fL (9.4-12.3); Monocytes Absolute Auto 0.3 X10*3/uL (0.1-1.2); Monocytes Percent Auto 6.4 % (2-11); Neutrophils Absolute Auto 2.8 x10*3/uL (2.0-8.3); Neutrophils Percent Auto 59.2 % (45-73); Platelet Count 256 X10*3/uL (160-400); Red Blood Count 4.68 X10*6/uL (4.20-5.50); White Blood Count 4.7 X10*3/uL (4.8-10.8)
[2024-09-19 14:15] LABS: Estimated Average Glucose 114 mg/dL; Hemoglobin A1C 176.1162 umol/L; Hemoglobin A1c % 5.6 % (<6.0); Total Hemoglobin (HGBA1C) 4697.0973 umol/L
[2024-09-19 14:45] LABS: Alanine Aminotransferase 13 U/L (0-31); Albumin Level 4.3 g/dL (3.5-5.0); Anion Gap 13 (12-20); Aspartate Amino Transferase 25 U/L (5-31); Bilirubin Total 0.4 mg/dL (0.0-1.0); Blood Urea Nitrogen 12 mg/dL (9-16); Calcium 9.5 mg/dL (8.4-10.2); Carbon Dioxide 23 mmol/L (22-29); Chloride 106 mmol/L (96-108); Cholesterol 207 mg/dL (<200); Estimated Glomerular Filt Rate > 60; Glucose Random 103 mg/dL (60-115); HDL Cholesterol 78 mg/dL (>40); LDL Cholesterol Calculated 113 mg/dL (<100); Potassium 3.8 mmol/L (3.3-5.1); Sodium 138 mmol/L (135-145); TSH reflex Free T4 1.99 uIU/mL (0.32-4.0); Total Protein 8.3 g/dL (6.5-8.0); Triglycerides 82 mg/dL (<150)
[2024-09-19 16:51] LABS: Alkaline Phosphatase 68 U/L (39-117)
[2024-09-20 08:08] LABS: Syphilis Screen Nonreactive (Nonreactive)
[2024-09-20 08:20] LABS: HBS Num1 360.44 mIU/mL (0-7.99); HBc Num1 6.12 S/CO (0.00-0.79); HBsAGNum1 0.32 S/CO (0.00-0.99); HIV AB/AG Nonreactive (Nonreactive); HIV Num 1 0.04 S/CO (0.00-0.99); Hepatitis B Surface Antigen Negative (Negative); ~HepC Num1 0.11 S/CO (0.00-0.79); ~Hepatitis B Surface Antibody REACTIVE (Nonreactive); ~Hepatitis C Antibody Nonreactive (Nonreactive)
[2024-09-20 10:17] LABS: HBc Num2 5.74 S/CO; HBc Num3 5.69 S/CO; Hepatitis B Core Antibody Reactive (Nonreactive)
[2024-09-20 15:44] LABS: RPR Rapid Plasma Reagin NON-REACTIVE (NON-REACTIVE)
[2024-09-20 19:02] LABS: Follicle Stimulating Hormone 42.5 mIU/mL; Lutenizing Hormone 14.1 mIU/mL
[2024-09-27 02:54] LABS: Estradiol Ultra Sensitive 22 pg/mL
== END 2024-09-19 11:34 | disposition home or self-care (01) ==
LOC: HO.HHCL 11:33
PROVIDERS: Student in an Organized Health Care Education/Training Program; Visit Provider Family Medicine
DX: Z00.00 Encounter for general adult medical examination without abnormal findings (principal); Z11.4 Encounter for screening for human immunodeficiency virus [HIV]; N91.2 Amenorrhea, unspecified; R21 Rash and other nonspecific skin eruption
CPT/HCPCS: 36415; 80053; 80061; 82670; 83001; 83002; 83036; 84443; 85025; 86592; 86704; 86706; 86780; 86803; 87340; 87389

== ENCOUNTER 2025-06-14 11:48 | Outpatient (REF) | payer MEDICAID, SELFPAY ==
--- OUTSIDE RECORDS SUMMARY | 2025-06-14 15:11 | XMS_ITS | Encounter Summary ---
Author Organization [employer] Address [address] [place] [address] Care Team Providers Care Metal Cut Off Saw Operator Name Role Phone Farhana Jordan MD Primary Care Pro vider Reason for Visit * Reason Onset Date Comments DERM 11/04/2024 Encounter Details Date Type Department Care Team ([facility] st Contact Info) Description 11/04/2024 Telephone [facility] MEDICINE [address] [place], [place] [phone] Farhana Jordan MD [address] [place] [address] DERM Social History Tobacco Use Types Packs/Day Years Used Date Smoking Tobacco: Never Passive Smoke Exposure: Never Smokeless Tobacco: Never Alcohol Use Standard Drinks/Week Comments Yes 0 (1 standard drink = 0.6 oz pur e alcohol) social Depression Answer Date Recorded Patient Health Questionnaire-9 Score 2 09/30/2024 Patient Health Questionnaire-9 Score 2 09/30/2024 Last PHQ-9: Questionnaire Data Not on file 0 09/30/2024 Housing Stability Answer Date Recorded What is [...] Date Recorded Patient Health Questionnaire-2 Score 0 09/30/2024 Internet Access Answer Date Recorded Internet Access [...] encounter Miscellaneous Notes * Telephone Encounter - Curt Polanco - 11/04/2024 9:24 AM EDT Tc from pt cancelling appointment 11/04 , pt inform she will like a callback as she will like to R/S [phone] documented in this encounter Plan of Treatment Not on file documented as of this encounter Visit Diagnoses Not on filedocumented in this encounter Additional Health Concerns Assessment Noted Time PHQ-9 Depression Total Score: 2 09/30/19 25 2:43 PM EST documented as of this encounter Care Teams Metal Cut Off Saw Operator Relationship Specialty Start Date End Date Farhana Jordan MD [address] [place] [address] PCP - General Internal Medicine 02/11/23 documented as of this encounter
--- OUTSIDE RECORDS SUMMARY | 2025-06-14 15:11 | XMS_ITS | Clinical Summary ---
Author Organization [employer] Address [address] [place] [address] [address] [place] [address] Care Team Providers Care Health Commissioner Name Role Phone Farhana Jordan MD Primary Care Pro vider Allergies No known active allergies Medications betamethasone, augmented, (Diprolene) 0.05 % ointmentIndica tions:Follicul itis Apply topically 2 times daily. 45 g 05/26/20 25 Active betamethasone, augmented, (Diprolene) 0.05 % ointmentIndica tions:Impetigi nous eczema Apply topically 2 times daily. 45 g 04/03/20 25 025 Discontinued(Re order (will not trigger notification to Pharmacy)) Active Problems Problem Noted Date Diagnosed Date Impetiginous eczema 04/03/2025 Wart of hand 09/02/2024 Assessment & Plan [...] clippers Return in 4 weeks for cryotherapy Healthcare maintenance 03/24/2023 Assessment & Plan (04/25/2023 [...] our pharmacy by pt request. -Referred to meat slicer for annual eye exam - pending to [...] in completing HPV vaccination series. -Referred to meat slicer today for annual eye exam Bilateral bunions 03/24/2023 Assessment & Plan (04/25/2023 12:23 PM EDT): Bilateral bunions causing pain. -Advise to avoid high heels and tight shoes. -Referred to meter/relay craftsman - pt pending to call for apt. Assessment & Plan (03/24/2023 6:23 AM EDT): Bilateral bunions causing pain. -Advise to avoid high heels and tight shoes. -Referred to meter/relay craftsman today. Resolved Problems Problem Noted Date Diagnosed Date Resolved Date Tinea manus 09/02/2024 04/03/2025 Assessment & Plan (09/03/2024 9:28 AM EST): Apply medication as prescribed Encounters Date Type Department Care Team Description 05/26/2025 10:30 AM EDT Office Visit [facility] MEDICINE [address] [place] [address] Drea Rodriguez MD Folliculitis (Primary Dx) 05/26/2025 Travel 04/19/2025 Population Health Risk Score [facility] ([facility] Department [address] [phone] Provider, Population Health Generic 04/03/2025 1:15 PM EDT Office Visit [facility] MEDICINE [address] [place] [address] Farhana Jordan MD Hyperlipidemia, unspecified hyperlipidemia type (Primary Dx); Impetiginous eczema; Annual physical exam; Bunion; Healthcare maintenance; Bilateral bunions 04/03/2025 Travel 03/31/2025 Telephone [facility] MEDICINE [address] [place] [address] Farhana Jordan MD chart prep 03/27/2025 Patient Outreach [facility] PEDS [address] [place] [address] Farhana Jordan MD Pre-visit Planning ([facility] unable to reach [facility]) from Last 3 Months Immunizations Immunization Administration Dates Next Due HPV 9-Valent 09/04/2020 [...] housing situation today? I have janine glover 04/03/[address] you li ve. Do you have problems with any of the following? None of the above 04/03/2025 Food Insecurity Answer Date Recorded Within the past 12 months, y ou worried that your food would run out before you got money to buy more: Never True 04/03/2025 Within the past 12 months,th e food you bought just didn't last and you didn't have enough money to get more: Never True Transportation Answer Date Recorded In the past 12 months, has l ack of transportation kept you from medical appts, meetings, work or from getting things needed for daily living? No 04/03/2025 Utilities Answer Date Recorded In the past 12 months, has t he electric, gas, oil or water company threatened to shut off services in your home? No 04/03/2025 Depression Answer Date Recorded Patient Health Questionnaire-2 Score 0 09/30/2024 Internet Access Answer Date Recorded Internet Access Q1 Yes 04/03/2025 Internet Access Q2 Not on file 04/03/2025 Comments Unknown Sex and Gender Information Value Date Recorded Sex Assigned at Female 06/16/2022 10:28 AM EDT Legal Sex Female 10:28 AM EDT Gender Identity Female 06/16/2022 10:28 AM EDT Sexual Orientation Straight 03/23/2023 9: 43 AM EDT Last Filed Vital Signs Vital Sign Reading Time Taken Comments Blood Pressure 110/70 05/26/2025 10:33 AM EDT Pulse 74 05/26/2025 10:33 AM EDT Temperature 37.1 C (98.7 F) 05/26/2025 10:33 AM EDT Respiratory Rate 14 05/26/2025 10:33 AM EDT Oxygen Saturation 99% 04/03/2025 1:22 PM EDT Inhaled Oxygen Concentration - - Weight 60.3 kg (133 lb) 05/26/2025 10:33 AM EDT Height 160 cm (5' 3 ) 05/26/2025 10:33 AM EDT Body Mass Index 23.56 05/26/2025 10:33 AM EDT Plan of Treatment Health Maintenance Due Date Last Done Comments Family Planning (PISQ) 11/17/1995 Hepatitis B Vaccines (1 of 3 - 19+ 3-dose series) 11/17/1999 HPV Vaccines (2 - 3-dose series) 10/02/2020 09/04/2020 COVID-19 Vaccine ( season) 2025 08/03/2023, 07/31/2022, 06/30/2021, Additional history exists Influenza Vaccine (#1) 2025 , 06/07/2020, 05/17/2020 Cervical Cancer Screening 09/21/2025 HPV/Cotest 09/21/2025 09/21/2020 Pap Smear 09/21/2025 09/21/2020 Depression Screening 09/30/2025 09/30/2024, 09/30/19 25 Alcohol/Substance Use Screening 04/03/2026 04/03/2025 Disability Screening 04/03/2026 04/03/2025 SDOH Screening 04/03/2026 04/03/2025 Tobacco Screening 04/03/2026 04/03/2025 Mammogram 06/08/2026 06/08/2024, 03/0 10/2020, 10/17/2020 Zoster Vaccines (1 of 2) 2030 DTaP/Tdap/Td Vaccines (2 - Td or Tdap) 03/23/2033 03/23/2023 RSV Patients and Patients Aged 60 years or older (1 - 1-dose 75+ series) 11/17/2055 HIV Screening Completed 09/19/2024, 04/01/2023 Hepatitis C Screening Completed 09/19/2024, 023 HIB Vaccines Aged Out No longer eligi ble based on patient's age to complete this topic Hepatitis A Vaccines Aged Out No long er eligible based on patient's age to complete this topic IPV Vaccines Aged Out No longer eligi ble based on patient's age to complete this topic Meningococcal B Vaccine Aged Out No l onger eligible based on patient's age to complete this topic Meningococcal Vaccine Aged Out No shaun bettina eligible based on patient's age to complete this topic Pneumococcal Vaccine: Pediatrics (0 to 5 Years) and At-Risk Patients (6 to 49) Years Aged Out No longer eligible based on patient's age to complete this topic RSV under 20 months Aged Out No longe r eligible based on patient's age to complete this topic Rotavirus Vaccines Aged Out No longer eligible based on patient's age to complete this topic Procedures Procedure Name Priority Date/Time Associated Diagnosis Comments HEPATITIS C AB W/REFL TO HCV RNA, QN, PCR Routine 09/19/2024 11:38 AM EST Annual physical exam HIV 1/2 ANTIGEN/ANTIBODY, FOURTH GENERATION W/RFL Routine 09/19/2024 11:38 AM EST Annual physical exam BI MAMMOGRAM SCREENING TOMOSYNTHESIS BILATERAL Routine 06/08/2024 12:01 PM EDT Breast cancer screening by mammogram HPV MRNA E6/E7 Routine 09/21/2020 3:54 PM EST THINPREP PAP Routine 09/21/2020 3:54 PM EST from Last 3 Months or Most Recently Relevant to Health Maintenance Results * Hepatitis C Antibody with Reflex to HCV, RNA, Quantitative, Real-Time PCR (09/19/2024 11:38 AM EST) Hepatitis C Antibody Nonreactive Nonreactive [facility] Comment:Antibodies to HCV no t detected; does not exclude early acuteHCV infection. Blood Venous blood specimen / Unknown 09/19/2024 11:38 AM EST 09/19/2024 1:19 PM EST us Farhana Velasco MD LAB BLOOD ORDERAB LES Final Result [facility] [address] [place] [phone] * HIV-1/2 Antigen and Antibodies, Fourth Generation, with Reflexes (09/19/2024 11:38 AM EST) HIV AB/AG Nonreactive Nonreactive [facility] Comment:HIV-1 p24 Ag and/or HIV-1/HIV-2 Ab not detected.A test result that is nonreactive does not exclude thepossibility of exposure to or infection with HIV-1 and/orHIV-2. Nonreactive results in this assay for individualswith prior exposure to HIV-1 and/or HIV-2 may be due toantigen and antibody levels that are below the limit ofdetection of this assay.The [employer] HIV Ag/Ab Combo assay result andsupplemental assay results should be interpreted inconjunction with the patient's clinical presentation,history and other laboratory results. If the results areinconsistent with clinical evidence, additional testing issuggested to confirm the result. Blood Venous blood specimen / Unknown 09/19/2024 11:38 AM EST 09/19/2024 1:19 PM EST us Farhana eVlasco MD LAB BLOOD ORDERAB LES Final Result [facility] [address] [place] [address] [phone] * BI Mammogram Screening Tomosynthesis Bilateral (06/08/2024 12:01 PM EDT) Anatomical Region Laterality Modality Breast Bilateral Mammography 06/08/2024 12:0 1 PM EDT Narrative 06/20/2024 4:18 PM EST [facility] [address] [place] [address] Mammography Report Signed Patient: Omero Cheng MR#: [id number] : 1980 Acct:[id number] Age/Sex: 43 / F ADM Date: 06/08/24 Loc: [facility] Attending Dr: Farhana Velasco MD Ordering Physician: Farhana Jordan MD Re sults: 1Negative Date of Service: 06/08/24 Follow Up: 1 Year From Orig inal Mammogram Procedure(s): MM tomosynthesis screening BI Accession Number(s): [id number] cc: Farhana Jordan MD EXAMINATION: MM SCREENING [...] by: Julia Mccarthy DO 06/20/2024 04:[address] [facility] Dictated By: Julia Mccarthy DO Signed By: <Electronically signed by Julia Mccarthy DO in OV> 06/20/24 1615 DD/ 1201 TD/TT: 06/08/24 1225 Nurse Epidemiologist: Procedure Note Donotuseinterpreter, Image - 06/20/2024 [facility] [address] [place], [place] [address] Mammography Report Signed Patient: Omero Cheng#: [id number] : 1980Acct:[id number] Age/Sex: 43 / FADM Date: 06/08/24 Loc: [facility] Attending Dr: Farhana Velasco MD Ordering Physician: Farhana Jordan sults: 1Negative Date of Service: 06/08/24Follow Up: 1 Year From Orig inal Mammogram Procedure(s): MM tomosynthesis screening BI Accession Number(s): [id number] cc: Farhana Jordan MD EXAMINATION: MM SCREENING [...] by: Julia Mccarthy DO 06/20/2024 04:15 PM EST RP Dictated By: Julia Mccarthy DO Signed By: <Electronically signed by Julia Mccarthy DO in OV> 06/20/24 1615 DD/ 1201 TD/TT: 06/08/24 1225 Nurse Epidemiologist: Farhana Velasco MD IMG BI PROCEDURES Edited Result - Final * THINPREP PAP (09/21/2020 3:54 PM EST) Clinical Information: None given [email or web address] COMMENT SEE COMMENT [facility] Comment: EXPLANATORY NOTE: The Pap is a screening test for cervical cancer. It is not a diagnostic test and is subject to false negative and false positive results. It is most reliable when a satisfactory sample, regularly obtained, is submitted with relevant clinical findings and history, and when the Pap result is evaluated along with historic and current clinical information. Fire Dispatcher : SEE COMMENT [email or web address] Comment: MXD, CT (ASCP) CT screening location: [address] [address] Interpretation/R esult: Negative for intraepithelial lesion or malignancy. [email or web address] LMP: NONE [facility]IVEN [facility] Prev. BX: NONE [facility]IVEN [facility] Prev. PAP: NONE [facility]IVEN [facility] SOURCE: None given [facility] Statement Of Adequacy: SEE COMMENT [facility] Comment: Satisfactory for evaluation. Endocervical/transformation zone component absent. Age and/or menstrual status not provided 09/21/2020 3:54 PM EST [facility] PATHOLOGY ORDERABLES Final Result Performing Organization Address [facility] de Phone Number [facility] [address] * HPV mRNA E6/E7 (09/21/2020 3:54 PM EST) HPV nRNA E6/E7 Not Detected Not Detected [facility] Comment: Methodology: Manager Wind-Mediated Amplification This assay detects E6/E7 viral messenger RNA (mRNA) from 14 high-risk HPV types (16,18,31,33,35,39,45,51,52,56,58,59,66,68). The analytical performance characteristics of this assay have been determined by [employer]. The modifications have not been cleared or approved by the FDA. This assay has been validated pursuant to the CLIA regulations and is used for clinical purposes. For additional information, please refer to http://education.[employer]/XCS641s4 (This link if provided for information/ educational purposes only.) 09/21/2020 3:54 PM EST [facility] LAB BLOOD ORDERABLES Final Res ult Performing Organization Address [facility] Phone Number [facility] [address] from Last 3 Months or Most Recently Relevant to Health Maintenance [facility] Care Teams Health Commissioner Relationship Specialty Start Date End Date Farhana Jordan MD [address] [place] [phone] PCP - General Internal Medicine 02/11/23
--- OUTSIDE RECORDS SUMMARY | 2025-06-14 15:11 | XMS_ITS | Clinical Summary ---
Author Organization [facility] Address [facility] [employer] [address] [address] Phone Care Team Providers Care Game Bird Farmer Name Role Phone Pcp, Unknown Primary Care Provider Unavailabl e Allergies No known active allergies Medications tretinoin (RETIN-A) 0.025 % cream Apply a pea-sized amount to entire face at night as tolerated 45 g 2 6 Active clindamycin (CLINDAGEL) 1 % gel Apply a thin layer to face daily 60 g 3 6 Active Social History Tobacco Use Types Packs/Day Years Used Date Smoking Tobacco: Never Assessed Education Answer Date Recorded Are you interested in more education? Not on nabor e 12/12/2022 Are you concerned about learning? Not on file 12/12/2022 No 12/12/2022 No 12/12/2022 Digital Access Answer Date Recorded No 01/12/2023 No 01/12/2023 No 01/12/2023 Reliable internet access at home? Not on file 01/12/2023 Device with a working camera? Not on file Comments Unknown Sex and Gender Information Value Date Recorded Sex Assigned at Not on file Legal Sex Female 1:52 PM EDT Gender Identity Not on file Sexual Orientation Not on file Plan of Treatment Health Maintenance Due Date Last Done Comments Adult Td,Tdap Booster 1980 DEPRESSION SCREENING 1992 SMOKING Hx and SMOKELESS TOB ACCO SCREENING 1993 HEPATITIS C SCREENING 1998 HIV ONE-TIME SCREENING (18-6 5 YEARS) 1998 PAP SMEAR 2001 MAMMOGRAM 2020 INFLUENZA VACCINE (#1) 2025 COVID-19 VACCINE (2024-2 6 season) 2025 HEPATITIS A VACCINES Aged Out No long er eligible based on patient's age to complete this topic HIB VACCINES Aged Out No longer eligi ble based on patient's age to complete this topic MENINGOCOCCAL VACCINES (ACWY) Aged Out No longer eligible based on patient's age to complete this topic MENINGOCOCCAL VACCINES (B) Aged Out N o longer eligible based on patient's age to complete this topic PNEUMOCOCCAL VACCINES (0-49 years) Aged Out No longer eligible based on patient's age to complete this topic Medical Devices Not on file [place] [address] [address] [place] [id number] [place] [id number] [facility] Care Teams Game Bird Farmer Relationship Specialty Start Date End Date Pcp, Unknown PCP - General 03/14/22 Additional Source Comments The information contained in this document represents components of the legal health record. It is not the complete legal health record.[facility]
--- OUTSIDE RECORDS SUMMARY | 2025-06-14 15:11 | XMS_ITS | Encounter Summary ---
Author Organization [employer] Address [address] [place] [address] Care Team Providers Care Outside Physical Damage Appraiser Name Role Phone Farhana Jordan MD Primary Care Pro vider Reason for Visit * Reason Onset Date Comments Nurse Triage 06/01/2023 Encounter Details Date Type Department Care Team ([facility] st Contact Info) Description 06/01/2023 Telephone [facility] MEDICINE [address] [place], [place] [phone] Farhana Jordan MD [address] [place] [address] Nurse Triage Social History Tobacco Use Types [...] documented as of this encounter Care Teams Outside Physical Damage Appraiser Relationship Specialty Start Date End Date Farhana Jordan MD [address] [place] [phone] PCP - General Internal Medicine 02/11/23 documented as of this encounter
--- OUTSIDE RECORDS SUMMARY | 2025-06-14 15:11 | XMS_ITS | Encounter Summary ---
Author Organization [employer] Address [address] [place] [address] [place] [address] Care Team Providers Care Track Man Name Role Phone Nancy Francis Primary Care Provider [phone] Farhana Jodran MD Primary Care Pro vider Encounter Details Date Type Department Care Team (Latest Contact Info) Description 09/17/2021 Abstract [facility] Dental, Provider, DDS Social History Tobacco Use Types Packs/Day Years Used Date Smoking Tobacco: Never Assessed Comments Unknown Sex and Gender Information Value Date Recorded Sex Assigned at Female 06/16/2022 10:28 AM EDT Legal Sex Female 10:28 AM EDT Gender Identity Female 06/16/2022 10:28 AM EDT Sexual Orientation Straight 03/23/2023 9: 43 AM EDT documented as of this encounter Plan of Treatment Not on file documented as of this encounter Visit Diagnoses Not on filedocumented in this encounter Care Teams Track Man Relationship Specialty Start Date End Date Nancy Francis FNP [address] [place] [address] PCP - General Family Medicine 04/14/22 02/10/23 Farhana Jordan MD [address] [place] [address] PCP - General Internal Medicine 02/11/23 documented as of this encounter
== END 2025-06-14 11:49 | disposition home or self-care (01) ==
LOC: HO.MAMMO 11:48
PROVIDERS: Visit Provider Student in an Organized Health Care Education/Training Program
DX: Z12.31 Encounter for screening mammogram for malignant neoplasm of breast (principal)
CPT/HCPCS: 77063; 77067

== ENCOUNTER → 2025-06-14 12:15 | Outpatient (BNV) | payer MEDICAID, SELFPAY | PROVIDERS: Visit Provider Radiology Body Imaging | DX: Z12.31 Encounter for screening mammogram for malignant neoplasm of breast (principal) | CPT/HCPCS: 77063; 77067 ==

== ENCOUNTER 2025-07-12 10:57 | Outpatient (REF) | payer MEDICAID, SELFPAY ==
--- NOTE | ~2025-07-12 | US_ITS ---
EXAMINATION: MM DIAGNOSTIC DIGITAL BREAST TOMOSYNTHESIS, LEFT Limited left breast ultrasound. CLINICAL INFORMATION: Call back from screening for circumscribed oval mass in the upper outer left breast. COMPARISON: Mammography: TECHNIQUE: Digital breast tomosynthesis is performed in both the craniocaudal and mediolateral oblique views along with computer-aided detection (CAD). Synthesized 2D images are generated from the tomosynthesis. FINDINGS: The breasts are heterogeneously dense, which may obscure small masses. Oval mass in the upper outer left breast persists on additional imaging is increased in size from priors. No suspicious calcifications or other abnormal findings. Targeted color Doppler ultrasound in the left breast at 2:00 5 cm from nipple demonstrates a hypoechoic oval circumscribed solid mass measuring 14 x 14 x 7 mm. This correlates with the oval mass on mammography. US/US Breast LT Limited Mamm Only IMPRESSION: Hypoechoic oval circumscribed solid mass at left breast 2:00 5 cm from the nipple increased in size from prior mammograms. Recommend histology with ultrasound-guided core needle biopsy at this time for confirmation. The findings and recommendations were discussed with the patient the procedure will be scheduled. ASSESSMENT: BI-RADS Category 4: Suspicious RECOMMENDATION: Biopsy recommended Results were provided to the patient at time of visit by the technologist. Electronically signed by: Julia Mccarthy DO 07/12/2025 12:18 PM [facility]
--- OUTSIDE RECORDS SUMMARY | 2025-07-12 13:28 | XMS_ITS | Clinical Summary ---
Author Organization [facility] Address [facility] [address] [address] Phone Care Team Providers Care Developer Programmer Name Role Phone Pcp, Unknown Primary Care [...] topic Medical Devices Not on file [place] [address] [place] [address] [place] [phone] [place] [address] [facility] Care Teams Developer Programmer Relationship Specialty Start Date End Date Pcp, Unknown PCP - General 03/14/22 Additional Source Comments The information contained in this document represents components of the legal health record. It is not the complete legal health record.[facility]
--- OUTSIDE RECORDS SUMMARY | 2025-07-12 13:28 | XMS_ITS | Encounter Summary ---
Author Organization [employer] Address [address] [place] [address] [place] [address] Care Team Providers Care Flatlock Sewing Machine Operator Name Role Phone Nancy Francis Primary Care Provider [phone] Farhana Jordan MD Primary Care Pro vider [...] on filedocumented in this encounter Care Teams Flatlock Sewing Machine Operator Relationship Specialty Start Date End Date Nancy Francis FNP [address] [place] [address] PCP - General Family Medicine 04/14/22 02/10/23 Farhana Jordan MD [address] [place] [address] PCP - General Internal Medicine 02/11/23 documented as of this encounter
--- OUTSIDE RECORDS SUMMARY | 2025-07-12 13:28 | XMS_ITS | Encounter Summary ---
Author Organization [employer] Address [address] [place] [address] Care Team Providers Care Trombone Slide Assembler Name Role Phone Farhana Jordan MD Primary Care Pro vider Reason for Visit * Reason Onset Date Comments Nurse Triage 06/01/2023 Encounter Details Date Type Department Care Team ([facility] st Contact Info) Description 06/01/2023 Telephone [facility] MEDICINE [address] [place], [place] [phone] Farhana Jordan MD 230 [place] [address] Nurse Triage Social History Tobacco Use Types [...] documented as of this encounter Care Teams Trombone Slide Assembler Relationship Specialty Start Date End Date Farhana Jordan MD [address] [place] [address] PCP - General Internal Medicine 02/11/23 documented as of this encounter
--- OUTSIDE RECORDS SUMMARY | 2025-07-12 13:28 | XMS_ITS | Clinical Summary ---
Author Organization [employer] Address [address] [place] [address] [address] [place] [address] Care Team Providers Care Patient Services Technician Name Role Phone Farhana Jordan MD Primary Care Pro vider Allergies No known active allergies Medications betamethasone, augmented, (Diprolene) 0.05 % ointmentIndicat ions:Folliculit is Apply topically 2 times daily. 45 g Active Active Problems Problem Noted Date Diagnosed Date [...] our pharmacy by pt request. -Referred to field marketing lead for annual eye exam - pending to [...] in completing HPV vaccination series. -Referred to field marketing lead today for annual eye exam Bilateral bunions 03/24/2023 Assessment & Plan (04/25/2023 12:23 PM EDT): Bilateral bunions causing pain. -Advise to avoid high heels and tight shoes. -Referred to elementary school reading teacher - pt pending to call for apt. Assessment & Plan (03/24/2023 6:23 AM EDT): Bilateral bunions causing pain. -Advise to avoid high heels and tight shoes. -Referred to elementary school reading teacher today. Resolved Problems Problem Noted Date Diagnosed Date Resolved Date Tinea manus 09/02/2024 04/03/2025 Assessment & Plan (09/03/2024 9:28 AM EST): Apply medication as prescribed Encounters Date Type Department Care Team Description 06/20/2025 Results Follow-Up [facility] MEDICINE 230 [place] [address] Sheri Prakash RN BI Mammogram Screening Tomosynthesis Bilateral 06/14/2025 Orders Only [facility] MEDICINE 230 [place] [phone] Farhana Jordan MD 05/26/2025 10:30 AM EDT Office Visit [facility] MEDICINE [address] [facility] [place] [address] Drea Rodriguez MD Folliculitis (Primary Dx) 05/26/2025 Travel 04/19/2025 Population Health Risk Score [facility] () Department [address] [phone] Provider, Population Health Generic from Last 3 Months Immunizations Immunization Administration [...] housing situation today? I have janine belen 04/03/[address] you li [...] Influenza Vaccine (#1) 2025 , 06/07/2020, 05/17/2020 Diagnostic Breast Imaging 06/19/2025 Cervical Cancer Screening 09/21/2025 HPV/Cotest 09/21/2025 09/21/2020 Pap Smear 09/21/2025 09/21/2020 Depression Screening 09/30/2025 09/30/2024, 09/30/19 25 Alcohol/Substance Use Screening 04/03/2026 04/03/2025 Disability Screening 04/03/2026 04/03/2025 SDOH Screening 04/03/2026 04/03/2025 Tobacco Screening 04/03/2026 04/03/2025 Zoster Vaccines (1 of 2) 2030 DTaP/Tdap/Td [...] Priority Date/Time Associated Diagnosis Comments BI MAMMOGRAM DIAGNOSTIC TOMOSYNTHESIS ADDED VIEW LEFT Routine 07/12/2025 11:00 AM EST BI MAMMOGRAM SCREENING TOMOSYNTHESIS BILATERAL Routine 06/14/2025 12:02 PM EDT HEPATITIS C AB W/REFL TO HCV RNA, QN, PCR Routine 09/19/2024 11:38 AM EST Annual physical exam HIV 1/2 ANTIGEN/ANTIBODY, FOURTH GENERATION W/RFL Routine 09/19/2024 11:38 AM EST Annual physical exam HPV MRNA E6/E7 Routine 09/21/2020 3:54 PM EST THINPREP PAP Routine 09/21/2020 3:54 PM EST from Last 3 Months or Most Recently Relevant to Health Maintenance Results * BI Mammogram Diagnostic Tomosynthesis added left (07/12/2025 11:00 AM EST) Anatomical Region Laterality Modality Breast Left Mammography 07/12/2025 11:0 0 AM EST Narrative 07/12/2025 12:21 PM EST [address] [place] [address] Mammography Report Signed Patient: Omero Cheng MR#: [id number] : 1980 Acct:[id number] Age/Sex: 44 / F ADM Date: 07/12/25 Loc: HO.MAMMO Attending Dr: Farhana Velasco MD Ordering Physician: Farhana Jordan MD Re sults: 4Suspicious Date of Service: 07/12/25 Follow Up: Biopsy Recommend ed Procedure(s): MM tomosynthesis added views L Accession Number(s): [id number] cc: Farhana Jordan MD Reason For Exam: LT BR AV US FOR FOCAL UOQ EXAMINATION: MM DIAGNOSTIC DIGITAL BREAST TOMOSYNTHESIS, LEFT Limited left breast ultrasound. CLINICAL INFORMATION: Call back from screening for circumscribed oval mass in the upper outer left breast. COMPARISON: Mammography: TECHNIQUE: Digital breast tomosynthesis is performed in both the craniocaudal and mediolateral oblique views along with computer-aided detection (CAD). Synthesized 2D images are generated from the tomosynthesis. FINDINGS: The breasts are heterogeneously dense, which may obscure small masses. Oval mass in the upper outer left breast persists on additional imaging is increased in size from priors. No suspicious calcifications or other abnormal findings. Targeted color Doppler ultrasound in the left breast at 2:00 5 cm from nipple demonstrates a hypoechoic oval circumscribed solid mass measuring 14 x 14 x 7 mm. This correlates with the oval mass on mammography. MM/MM tomosynthesis added views L IMPRESSION: Hypoechoic oval circumscribed solid mass at left breast 2:00 5 cm from the nipple increased in size from prior mammograms. Recommend histology with ultrasound-guided core needle biopsy at this time for confirmation. The findings and recommendations were discussed with the patient the procedure will be scheduled. ASSESSMENT: BI-RADS Category 4: Suspicious RECOMMENDATION: Biopsy recommended Results were provided to the patient at time of visit by the technologist. Electronically signed by: Julia Mccarthy DO 07/12/2025 12:18 PM [facility] Dictated By: Julia Mccarthy DO Signed By: <Electronically signed by Julia Mcacrthy DO in OV> 07/12/25 1218 DD/ 1100 TD/TT: 07/12/25 1120 Audio Visual Project Manager: Procedure Note Donotuseinterpreter, Image - 07/12/2025 [facility] [address] [place] [address] Mammography Report Signed Patient: Omero ChengMR#: [id number] : 1980Acct:[id number] Age/Sex: 44 / FADM Date: 07/12/25 Loc: HO.MAMMO Attending Dr: Farhana Velasco MD Ordering Physician: Farhana Jordan sults: 4Suspicious Date of Service: 07/12/25Follow Up: Biopsy Recommend ed Procedure(s): MM tomosynthesis added views L Accession Number(s): [id number] cc: Farhana Jordan MD Reason For Exam: LT BR AV US FOR FOCAL UOQ EXAMINATION: MM DIAGNOSTIC DIGITAL BREAST TOMOSYNTHESIS, LEFT Limited left breast ultrasound. CLINICAL INFORMATION: Call back from screening for circumscribed oval mass in the upper outer left breast. COMPARISON: Mammography: TECHNIQUE: Digital breast tomosynthesis is performed in both the craniocaudal and mediolateral oblique views along with computer-aided detection (CAD). Synthesized 2D images are generated from the tomosynthesis. FINDINGS: The breasts are heterogeneously dense, which may obscure small masses. Oval mass in the upper outer left breast persists on additional imaging is increased in size from priors. No suspicious calcifications or other abnormal findings. Targeted color Doppler ultrasound in the left breast at 2:00 5 cm from nipple demonstrates a hypoechoic oval circumscribed solid mass measuring 14 x 14 x 7 mm. This correlates with the oval mass on mammography. MM/MM tomosynthesis added views L IMPRESSION: Hypoechoic oval circumscribed solid mass at left breast 2:00 5 cm from the nipple increased in size from prior mammograms. Recommend histology with ultrasound-guided core needle biopsy at this time for confirmation. The findings and recommendations were discussed with the patient the procedure will be scheduled. ASSESSMENT: BI-RADS Category 4: Suspicious RECOMMENDATION: Biopsy recommended Results were provided to the patient at time of visit by the technologist. Electronically signed by: Julia Mccarthy DO 07/12/2025 12:18 PM EST Dictated By: Julia Mccarthy DO Signed By: <Electronically signed by Julia Mccarthy DO in OV> 07/12/25 1218 DD/ 1100 TD/TT: 07/12/25 1120 Audio Visual Project Manager: Farhana Velasco MD IMG BI PROCEDURES Final Result * BI Mammogram Screening Tomosynthesis Bilateral (06/14/2025 12:02 PM EDT) Anatomical Region Laterality Modality Breast Bilateral Mammography 06/14/2025 12:0 2 PM EDT Narrative 06/17/2025 4:16 PM EDT [facility] [address] [place], [place] [address] Mammography Report Signed Patient: Omero Cheng MR#: [id number] : 1980 Acct:[id number] Age/Sex: 44 / F ADM Date: 06/14/25 Loc: [facility] Attending Dr: Farhana Velasco MD Ordering Physician: Farhana Jordan MD Results: 0Incomplete- Need Additional Imaging Evaluation Date of Service: 06/14/25 Follow Up: Additional Imagi ng Procedure(s): MM tomosynthesis screening BI Accession Number(s): [id number] cc: Farhana Jordan MD Reason For Exam: Z12.31 EXAMINATION: MM SCREENING DIGITAL BREAST TOMOSYNTHESIS, BILATERAL CLINICAL INFORMATION: Screening. Asymptomatic. Status post right breast ultrasound-guided needle core biopsy on October 30, 2017 at [facility]; pathology results showed breast tissue and skeletal muscle with portion of fibroepithelial lesion. COMPARISON: Comparison made to multiple prior, most recent June 08, 2024, and most remote October 19, 2017. TECHNIQUE: Digital breast tomosynthesis is performed in mediolateral oblique and craniocaudal views along with computer-aided detection (CAD). Synthesized 2D images are generated from the tomosynthesis. FINDINGS: BREAST COMPOSITION: The breasts are heterogeneously dense, which may obscure small masses. RIGHT BREAST: Previous ultrasound-guided needle core biopsy; no tissue marker demonstrated. No significant masses, suspicious calcifications or other abnormalities are seen. LEFT BREAST: Approximately 1.5 cm focal asymmetry in the upper outer quadrant at 5-6 cm from the nipple (MLO 7/48, CC 16/50). No suspicious calcifications or other abnormalities are seen. MM/MM tomosynthesis screening BI IMPRESSION: RIGHT BREAST: Benign, no mammographic evidence of malignancy. Normal interval follow-up is recommended in 12 months. LEFT BREAST: 1.5 cm focal asymmetry in the upper outer quadrant at 5-6 cm from the nipple. ASSESSMENT: BI-RADS: Category 0: Incomplete - Need additional Imaging Evaluation RECOMMENDATION: 1. Additional views of the left breast 2. Targeted ultrasound if warranted after review of the additional views. 3. Radiology department staff will contact the patient for additional imaging. FOLLOW-UP: Additional Imaging required This examination should not preclude the clinical evaluation of a suspicious palpable abnormality. This patient's information was entered into a reminder system with a target due date for their next mammogram. Electronically signed by: Maricruz Fonseca MD 06/17/2025 04:13 PM EDT Dictated By: Maricruz Fonseca MD Signed By: <Electronically signed by Maricruz Fonseca MD in OV> 06/17/25 1613 DD/ 1202 TD/TT: 06/14/25 1226 Audio Visual Project Manager: Procedure Note Donotbrianinterpreter, Image - 06/17/2025 [facility] [address] [place] [address] Mammography Report Signed Patient: Omero ChengMR#: [id number] : 1980Acct:[id number] Age/Sex: 44 / FADM Date: 06/14/25 Loc: HO.MAMMO Attending Dr: Farhana Velasco MD Ordering Physician: Farhana Jordan MD Results: 0Incomplete- Need Additional Imaging Evaluation Date of Service: 06/14/25Follow Up: Additional Imagi ng Procedure(s): MM tomosynthesis screening BI Accession Number(s): [id number] cc: Farhana Jordan MD Reason For Exam: Z12.31 EXAMINATION: MM SCREENING DIGITAL BREAST TOMOSYNTHESIS, BILATERAL CLINICAL INFORMATION: Screening. Asymptomatic. Status post right breast ultrasound-guided needle core biopsy on October 30, 2017 at [facility]; pathology results showed breast tissue and skeletal muscle with portion of fibroepithelial lesion. COMPARISON: Comparison made to multiple prior, most recent June 08, 2024, and most remote October 19, 2017. TECHNIQUE: Digital breast tomosynthesis is performed in mediolateral oblique and craniocaudal views along with computer-aided detection (CAD). Synthesized 2D images are generated from the tomosynthesis. FINDINGS: BREAST COMPOSITION: The breasts are heterogeneously dense, which may obscure small masses. RIGHT BREAST: Previous ultrasound-guided needle core biopsy; no tissue marker demonstrated. No significant masses, suspicious calcifications or other abnormalities are seen. LEFT BREAST: Approximately 1.5 cm focal asymmetry in the upper outer quadrant at 5-6 cm from the nipple (MLO 7/48, CC 16/50). No suspicious calcifications or other abnormalities are seen. MM/MM tomosynthesis screening BI IMPRESSION: RIGHT BREAST: Benign, no mammographic evidence of malignancy. Normal interval follow-up is recommended in 12 months. LEFT BREAST: 1.5 cm focal asymmetry in the upper outer quadrant at 5-6 cm from the nipple. ASSESSMENT: BI-RADS: Category 0: Incomplete - Need additional Imaging Evaluation RECOMMENDATION: 1. Additional views of the left breast 2. Targeted ultrasound if warranted after review of the additional views. 3. Radiology department staff will contact the patient for additional imaging. FOLLOW-UP: Additional Imaging required This examination should not preclude the clinical evaluation of a suspicious palpable abnormality. This patient's information was entered into a reminder system with a target due date for their next mammogram. Electronically signed by: Maricruz Fonseca MD 06/17/2025 04:13 PM EDT Dictated By: Maricruz Fonseca MD Signed By: <Electronically signed by Maricruz Fonseca MD in OV> 06/17/25 1613 DD/ 1202 TD/TT: 06/14/25 1226 Audio Visual Project Manager: Farhana Velasco MD IMG BI PROCEDURES Edited Result - Final * Hepatitis C Antibody with Reflex to HCV, RNA, Quantitative, Real-Time PCR (09/19/2024 11:38 AM EST) Hepatitis C Antibody Nonreactive Nonreactive [facility] Comment:Antibodies to HCV no t detected; does not exclude early acuteHCV infection. Blood Venous blood specimen / Unknown 09/19/2024 11:38 AM EST 09/19/2024 1:19 PM EST Farhana Velasco MD LAB BLOOD ORDERAB LES Final Result [facility] [address] [place] [phone] * HIV-1/2 Antigen and Antibodies, Fourth Generation, with Reflexes (09/19/2024 11:38 AM EST) HIV AB/AG Nonreactive Nonreactive [facility] Comment:HIV-1 p24 Ag and/or HIV-1/HIV-2 Ab not detected.A test result that is nonreactive does not exclude thepossibility of exposure to or infection with HIV-1 and/orHIV-2. Nonreactive results in this assay for individualswith prior exposure to HIV-1 and/or HIV-2 may be due toantigen and antibody levels that are below the limit ofdetection of this assay.The [employer] HIV Ag/Ab Combo assay result andsupplemental assay results should be interpreted inconjunction with the patient's clinical presentation,history and other laboratory results. If the results areinconsistent with clinical evidence, additional testing issuggested to confirm the result. Blood Venous blood specimen / Unknown 09/19/2024 11:38 AM EST 09/19/2024 1:19 PM EST us Farhana Velasco MD LAB BLOOD ORDERAB LES Final Result [facility] [address] [place] [phone] * THINPREP PAP (09/21/2020 3:54 PM [...] along with historic and current clinical information. Carton Gluing Machine Operator : SEE COMMENT [facility] Comment: MXD, CT (ASCP) CT screening location: [place] [address] Interpretation/R esult: Negative for intraepithelial lesion or malignancy. [facility] LMP: NONE GIVEN [facility] Prev. BX: NONE GIVEN [facility] Prev. PAP: NONE [facility]IVEN [facility] SOURCE: None given [facility] Statement Of Adequacy: SEE COMMENT [facility] Comment: Satisfactory for evaluation. Endocervical/transformation zone component absent. Age and/or menstrual status not provided 09/21/2020 3:54 PM EST [facility] PATHOLOGY ORDERABLES Final Result Performing Organization Address [facility] Co de Phone Number [facility] [address] * HPV mRNA E6/E7 (09/21/2020 3:54 PM EST) HPV nRNA E6/E7 Not Detected Not Detected [facility] Comment: Methodology: [employer]-Mediated Amplification This assay detects E6/E7 viral messenger RNA (mRNA) from 14 high-risk HPV types (16,18,31,33,35,39,45,51,52,56,58,59,66,68). The analytical performance characteristics of this assay have been determined by [employer]. The modifications have not been cleared or approved by the FDA. This assay has been validated pursuant to the CLIA regulations and is used for clinical purposes. For additional information, please refer to http://education.[employer]/SSJ262h5 (This link if provided for information/ educational purposes only.) 09/21/2020 3:54 PM EST Niesha Zhou [facility] LAB BLOOD ORDERABLES Final Res ult Performing Organization Address [facility] de Phone Number [facility] [address] from Last 3 Months or Most Recently Relevant to Health Maintenance Insurance [facility] C3 Care Teams Patient Services Technician Relationship Specialty Start Date End Date Farhana Jordan MD [address] [place] [phone] PCP - General Internal Medicine 02/11/23
--- OUTSIDE RECORDS SUMMARY | 2025-07-12 13:28 | XMS_ITS | Encounter Summary ---
Author Organization [employer] Address [address] [place] [address] Care Team Providers Care Court Worker Name Role Phone Farhana Jordan MD Primary Care Pro vider Reason for Visit * Reason Onset Date Comments DERM 11/04/2024 Encounter Details Date Type Department Care Team ([facility] st Contact Info) Description 11/04/2024 Telephone [facility] MEDICINE [address] [place], [place] [phone] Farhana Jordan MD [address] [place] [address] DERM Social History Tobacco Use Types Packs/Day [...] callback as she will like to R/S [phone] documented in this encounter Plan of Treatment Not on file documented as of this encounter Visit Diagnoses Not on filedocumented in this encounter Additional Health Concerns Assessment Noted Time PHQ-9 Depression Total Score: 2 09/30/19 25 2:43 PM EST documented as of this encounter Care Teams Court Worker Relationship Specialty Start Date End Date Farhana Jordan MD [address] [place] [address] PCP - General Internal Medicine 02/11/23 documented as of this encounter
--- OUTSIDE RECORDS SUMMARY | 2025-07-12 13:28 | XMS_ITS | Encounter Summary ---
Author Organization [employer] Address [address] [place] [address] 7 [place] [address] Care Team Providers Care Medicine Assistant Name Role Phone Farhana Jordan MD Primary Care Pro vider Reason for Visit * Reason Onset Date Comments Results 06/20/2025 Encounter Details Date Type Department Care Team (Latest Contact Info) Description 06/20/2025 Results Follow-Up [facility] MEDICINE 230 [place], [place] [phone] Sheri Prakash RN [address] [place] [address] BI Mammogram Screening Tomosynthesis Bilateral Social History Tobacco Use Types Packs/Day Years [...] encounter Miscellaneous Notes * Telephone Encounter - Sheri Prakash RN - 06/20/2025 9:16 AM EST Telephone call placed to [facility] regarding below message. Spoke with Codie who states they recommend more imaging but they don't need anything from us. Pt is on list to be called and scheduled for further imaging this week. * Telephone Encounter - Sheri Prakash RN - 06/20/2025 9:13 AM EST ----- Message from Anastacia Evans sent at 06/19/2025 5:26 PM EST ----- Please confirm whether US order is needed or if we're all set thanks ----- Message ----- From: Otilia Chaudhry RN Sent: 06/19/2025 8:57 AM EST To: Farhana Velasco MD; [facility]# ----- Message ----- From: Shaina Johnston Results In Sent: 06/17/2025 4:17 PM EST To: Farhana Velasco MD documented in this encounter Plan of Treatment Not on file documented as of this encounter Visit Diagnoses Not on filedocumented in this encounter Additional Health Concerns Assessment Noted Time PHQ-9 Depression Total Score: 2 09/30/19 25 2:43 PM EST documented as of this encounter Care Teams Medicine Assistant Relationship Specialty Start Date End Date Farahna Jordan MD [address] [place] [address] PCP - General Internal Medicine 02/11/23 documented as of this encounter
== END 2025-07-12 10:58 | disposition home or self-care (01) ==
LOC: HO.MAMMO 10:57
PROVIDERS: PCP Student in an Organized Health Care Education/Training Program; Visit Provider Student in an Organized Health Care Education/Training Program
DX: N64.89 Other specified disorders of breast (principal)
CPT/HCPCS: 76642; 77061; 77065

== ENCOUNTER → 2025-07-12 11:00 | Outpatient (BNV) | payer MEDICAID, SELFPAY | PROVIDERS: PCP Student in an Organized Health Care Education/Training Program; Visit Provider Internal Medicine | DX: N63.21 Unspecified lump in the left breast, upper outer quadrant (principal) | CPT/HCPCS: 76642; 77061; 77065 ==

== ENCOUNTER 2025-07-17 09:39 | Outpatient (AMB) | payer MEDICAID, SELFPAY ==
--- NOTE | 2025-07-17 09:39 | MHC.OFFVIS ---
Vital Signs 07/17/25 09:44 Height 5 ft 3 in Weight 131 lb BMI 23.2 Intake Visit Reasons: US guided Bx Lt breast mass 2:00 Intake Note: Patient presents for US guided Bx Lt breast mass 2:00. Pt c/o; no breast complaints at this time. Bx booked: 07/20/2025 800am Bottle Capper Required: No Accompanied by: Self / Same As Patient Allergies No Known Allergies Allergy (Verified 07/17/25 09:45) HPI HPI US guided Bx Lt breast mass 2:00: Details: [age] year old female referred for a left breast mass. She had undergone a screening mammogram last month enemas recalled because of a left breast mass. A diagnostic mammogram and ultrasound showed this hypoechoic oval circumscribed solid mass at the left breast, 14 x 14 x 7 mm in size. An ultrasound-guided biopsy was therefore recommended She denies any palpable mass. Her menarche was at the age of 15. She had her 1st at age of 26. She had 3 pregnancies. She thinks she is having menopause currently She denies any family history of breast cancer. [facility] Medical History (Updated 07/17/25 @ 08:08 by Jeffry Chao MD) Left breast mass Surgical History (Updated 07/17/25 @ 09:46 by WALLACE Quiles) No pertinent past surgical history Social History Alcohol intake: never Patient Tobacco Use Status: Never used Tobacco Female Reproductive History Menstrual Total pregnancies: 3 Review of Systems Const Denies chills and Denies fever(s) Card Denies chest pain, Denies dyspnea and Denies dyspnea on exertion Resp Denies cough, Denies dyspnea and Denies dyspnea on exertion GI Denies hematochezia and Denies change in bowel habits Denies hematuria Musc Denies back pain and Denies limited range of motion Neuro Denies focal weakness and Denies convulsions Psych Denies depression and Denies mood swings Physical Exam Const General: comfortable and no acute distress Orientation/consciousness: patient oriented x3 Neck Neck: Yes no lymphadenopathy Chest Other: No palpable breast masses, no axillary lymphadenopathy Resp Auscultation: clear to auscultation bilaterally Cardio Rhythm: regular rhythm GI Palpation (GI): Soft to palpation, nontender and no guarding Neuro General: patient oriented x3 Assessment & Plan Assessment & Plan (1) Left breast mass: Code(s): N63.20 - Unspecified lump in the left breast, unspecified quadrant Category: Medical Plan: Her imaging studies have shown this hypoechoic oval circumscribed solid mass in the left breast as described above. An ultrasound-guided biopsy was recommended. She understands the technique of this procedure. We will see her in the office next week to discuss the path report. Orders: Orders US breast ndl core biopsy LT Today N63.20 - Unspecified lump in the left breast, unspecified quadrant Coding Level of Care Code New Pt Level 3 (55191) Diagnoses Left breast mass N63.20
[2025-07-17 09:44] VITALS: BMI 23.2
--- OUTSIDE RECORDS SUMMARY | 2025-07-17 11:38 | XMS_ITS | Encounter Summary ---
Author Organization [employer] Address [address] [place] [address] Care Team Providers Care Environmental Engineering Intern Name Role Phone Farhana Jordan MD Primary Care Pro vider Reason for Visit * Reason Onset Date Comments DERM 11/04/2024 Encounter Details Date Type Department Care Team ([facility] st Contact Info) Description 11/04/2024 Telephone [facility] [address] [place], [place] [phone] Farhana Jordan MD [address] [place] [address] DERM Social History Tobacco Use Types Packs/Day [...] callback as she will like to R/S [phone] documented in this encounter Plan of Treatment Not on file documented as of this encounter Visit Diagnoses Not on filedocumented in this encounter Additional Health Concerns Assessment Noted Time PHQ-9 Depression Total Score: 2 09/30/19 25 2:43 PM EST documented as of this encounter Care Teams Environmental Engineering Intern Relationship Specialty Start Date End Date Farhana Jordan MD [address] [place] [address] PCP - General Internal Medicine 02/11/23 documented as of this encounter
--- OUTSIDE RECORDS SUMMARY | 2025-07-17 11:38 | XMS_ITS | Clinical Summary ---
Author Organization [facility] Address [facility] [address] [address] Phone Care Team Providers Care Cath Lab Manager Name Role Phone Pcp, Unknown Primary Care [...] topic Medical Devices Not on file [place] [address] [place] [phone] [place] [address] [facility] Care Teams Cath Lab Manager Relationship Specialty Start Date End Date Pcp, Unknown PCP - General 03/14/22 Additional Source Comments The information contained in this document represents components of the legal health record. It is not the complete legal health record.[facility]
--- OUTSIDE RECORDS SUMMARY | 2025-07-17 11:38 | XMS_ITS | Clinical Summary ---
Author Organization [employer] Address [address] [place] [address] [address] [place] [address] Care Team Providers Care Water Resources Business Segment Leader Name Role Phone Farhana Jordan MD Primary [...] our pharmacy by pt request. -Referred to cottrell operator for annual eye exam - pending to [...] in completing HPV vaccination series. -Referred to cottrell operator today for annual eye exam Bilateral bunions 03/24/2023 Assessment & Plan (04/25/2023 12:23 PM EDT): Bilateral bunions causing pain. -Advise to avoid high heels and tight shoes. -Referred to light air defense artillery crewmember - pt pending to call for apt. Assessment & Plan (03/24/2023 6:23 AM EDT): Bilateral bunions causing pain. -Advise to avoid high heels and tight shoes. -Referred to light air defense artillery crewmember today. Resolved Problems Problem Noted Date Diagnosed Date Resolved Date Tinea manus 09/02/2024 04/03/2025 Assessment & Plan (09/03/2024 9:28 AM EST): Apply medication as prescribed Encounters Date Type Department Care Team Description 06/20/2025 Results Follow-Up [facility] [address] [place] [address] Sheri Prakash RN BI Mammogram Screening Tomosynthesis Bilateral 06/14/2025 Orders Only [facility] [address] [place] [address] Farhana Jordan MD 05/26/2025 10:30 AM EDT Office Visit [facility] [address] [facility] [place] [address] Drea Rodriguez MD Folliculitis (Primary Dx) 05/26/2025 Travel 04/19/2025 Population Health Risk Score [facility] () Department [address] [phone] Provider, Population Health Generic from Last 3 [...] , 06/07/2020, 05/17/2020 Diagnostic Breast Imaging 06/19/2025 07/12/2025 Cervical Cancer Screening 09/21/2025 HPV/Cotest 09/21/2025 09/21/2020 [...] Name Priority Date/Time Associated Diagnosis Comments BI US BREAST LIMITED LEFT Routine 07/12/2025 11:21 AM EST BI MAMMOGRAM DIAGNOSTIC TOMOSYNTHESIS ADDED VIEW LEFT [...] Relevant to Health Maintenance Results * BI US Breast Limited Left (07/12/2025 11:21 AM EST) Anatomical Region Laterality Modality Breast Left Ultrasound 07/12/2025 11:2 1 AM EST Narrative 07/12/2025 12:21 PM EST [facility] [address] [place] [address] Ultrasound Report Signed Patient: Omero Cheng MR#: [id number] : 1980 Acct:[id number] Age/Sex: 44 / F ADM Date: 07/12/25 Loc: HO.MAMMO Attending Dr: Farhana Velasco MD Ordering Physician: Farhana Jordan MD Date of Service: 07/12/25 Procedure(s): US Breast LT Limited Mamm Only Accession Number(s): [id number] cc: Farhana Jordan MD Reason for Exam: LT BR AV US FOR FOCAL [...] correlates with the oval mass on mammography. US/US Breast LT Limited Mamm Only IMPRESSION: Hypoechoic oval circumscribed solid mass at [...] Mccarthy DO in OV> 07/12/25 1218 DD/ 1121 TD/TT: 07/12/25 1143 Regulatory Scientist: Procedure Note Donotuseinterpreter, Image - 07/17/2025 [facility] [address] [place] [address] Ultrasound Report Signed Patient: Omero ChengMR#: [id number] : 1980Acct:[id number] Age/Sex: 44 / FADM Date: 07/12/25 Loc: HO.MAMMO Attending Dr: Farhana Velasco MD Ordering Physician: Farhana Jordan MD Date of Service: 07/12/25 Procedure(s): US Breast LT Limited Mamm Only Accession Number(s): [id number] cc: Farhana Jordan MD Reason for Exam: LT BR AV US FOR FOCAL [...] correlates with the oval mass on mammography. US/US Breast LT Limited Mamm Only IMPRESSION: Hypoechoic oval circumscribed solid mass at [...] Mccarthy DO in OV> 07/12/25 1218 DD/ 1121 TD/TT: 07/12/25 1143 Regulatory Scientist: us Farhana Velasco MD IMG US PROCEDURES Final Result * BI Mammogram Diagnostic Tomosynthesis added left (07/12/2025 11:00 AM EST) Anatomical Region Laterality Modality Breast Left Mammography 07/12/2025 11:0 0 AM EST Narrative 07/12/2025 12:21 PM EST [place] [facility] [address] [place] [address] Mammography Report Signed Patient: Omero Cheng MR#: [id number] : 1980 Acct:[id number] Age/Sex: 44 / F ADM Date: 07/12/25 Loc: HO.MAMMO Attending Dr: Farhana Velasco MD Ordering Physician: Farhana Jordan MD Re sults: 4Suspicious Date of Service: 07/12/25 Follow Up: Biopsy Recommend ed Procedure(s): MM tomosynthesis added views L Accession Number(s): [id number] cc: Farhana Jordan MD Reason For Exam: [...] by: Julia Mccarthy DO 07/12/2025 12:18 PM [facility] Dictated By: Julia Mccarthy DO Signed By: <Electronically signed by Julia Mccarthy DO in OV> 07/12/25 1218 DD/ 1100 TD/TT: 07/12/25 1120 Regulatory Scientist: Procedure Note Donotuseinterpreter, Image - 07/12/2025 [facility] [address] [place], [place] [id number] Mammography Report Signed Patient: Omero Cheng#: [id number] : 1980Acct:[id number] Age/Sex: 44 / FADM Date: 07/12/25 Loc: HO.MAMMO Attending Dr: Farhana Velasco MD Ordering Physician: Farhana Jordan sults: 4Suspicious Date of Service: 07/12/25Follow Up: Biopsy Recommend ed Procedure(s): MM tomosynthesis added views L Accession Number(s): [id number] cc: Farhana Jordan MD Reason For Exam: [...] by: Julia Mccarthy DO 07/12/2025 12:18 PM [facility] Dictated By: Julia Mccarthy DO Signed By: <Electronically signed by Julia Mccarthy DO in OV> 07/12/25 1218 DD/ 1100 TD/TT: 07/12/25 1120 Regulatory Scientist: us Farhana Velasco MD IMG BI PROCEDURES Final Result * BI Mammogram Screening Tomosynthesis Bilateral (06/14/2025 12:02 PM EDT) Anatomical Region Laterality Modality Breast Bilateral Mammography 06/14/2025 12:0 2 PM EDT Narrative 06/17/2025 4:16 PM EDT [facility] [address] [place] [address] Mammography Report Signed Patient: Omero Cheng MR#: [id number] : 1980 Acct:[id number] Age/Sex: 44 / F ADM Date: 06/14/25 Loc: HO.MAMMO Attending Dr: Farhana Velasco MD Ordering Physician: Farhana Jordan MD Results: 0Incomplete- Need Additional Imaging Evaluation Date of Service: 06/14/25 Follow Up: Additional Imagi ng Procedure(s): MM tomosynthesis screening BI Accession Number(s): [id number] cc: Farhana Jordan MD Reason For Exam: Z12.31 EXAMINATION: MM SCREENING DIGITAL BREAST TOMOSYNTHESIS, BILATERAL CLINICAL INFORMATION: Screening. Asymptomatic. Status post right breast ultrasound-guided needle core biopsy on October 30, 2017 at [facility]; pathology results showed breast tissue and skeletal [...] 06/17/25 1613 DD/ 1202 TD/TT: 06/14/25 1226 Regulatory Scientist: Procedure Note Donotuseinterpreter, Image - 06/17/2025 [facility] [address] [place] [address] Mammography Report Signed Patient: Omero Cheng#: [id number] : 1980Acct:[id number] Age/Sex: 44 / FADM Date: 06/14/25 Loc: .MAMMO Attending Dr: Farhana Velasco MD Ordering Physician: Farhana Jordan MD Results: 0Incomplete- Need Additional Imaging Evaluation Date of Service: 06/14/25Follow Up: Additional Imagi ng Procedure(s): MM tomosynthesis screening BI Accession Number(s): [id number] cc: Farhana Jordan MD Reason For Exam: Z12.31 EXAMINATION: MM SCREENING DIGITAL BREAST TOMOSYNTHESIS, BILATERAL CLINICAL INFORMATION: Screening. Asymptomatic. Status post right breast ultrasound-guided needle core biopsy on October 30, 2017 at [facility]; pathology results showed breast tissue and skeletal [...] 06/17/25 1613 DD/ 1202 TD/TT: 06/14/25 1226 Regulatory Scientist: Farhana Velasco MD [facility] BI PROCEDURES Edited Result - Final * Hepatitis C Antibody with Reflex to HCV, RNA, Quantitative, Real-Time PCR (09/19/2024 11:38 AM EST) Hepatitis C Antibody Nonreactive Nonreactive [facility] Comment:Antibodies to HCV no t detected; does not exclude early acuteHCV infection. Blood Venous blood specimen / Unknown 09/19/2024 11:38 AM EST 09/19/2024 1:19 PM EST Farhana Velasco MD LAB BLOOD ORDERAB LES Final Result Performing Organization Address [facility] Co de Phone Number [facility] [address] [place] [phone] * HIV-1/2 Antigen and Antibodies, Fourth Generation, with Reflexes (09/19/2024 11:38 AM EST) HIV AB/AG Nonreactive Nonreactive [facility] Comment:HIV-1 p24 Ag and/or HIV-1/HIV-2 Ab not detected.A test result that is nonreactive does not exclude thepossibility of exposure to or infection with HIV-1 and/orHIV-2. Nonreactive results in this assay for individualswith prior exposure to HIV-1 and/or HIV-2 may be due toantigen and antibody levels that are below the limit ofdetection of this assay.The [employer] HIV Ag/Ab Combo assay result andsupplemental assay results should be interpreted inconjunction with the patient's clinical presentation,history and other laboratory results. If the results areinconsistent with clinical evidence, additional testing issuggested to confirm the result. Blood Venous blood specimen / Unknown 09/19/2024 11:38 AM EST 09/19/2024 1:19 PM EST Farhana Velasco MD LAB BLOOD ORDERAB LES Final Result Performing Organization Address [facility]/ZIP Co de Phone Number [facility] [address] [place] [phone] * THINPREP PAP (09/21/2020 3:54 PM [...] along with historic and current clinical information. Senior Network Engineer : SEE COMMENT [facility] Comment: MXD, CT (ASCP) CT screening location: [place] [address] Interpretation/R esult: Negative for intraepithelial lesion or malignancy. [facility] LMP: NONE [facility] Prev. BX: NONE [facility] Prev. PAP: NONE [facility] SOURCE: None given [facility] Statement Of Adequacy: SEE COMMENT [facility] Comment: Satisfactory for evaluation. Endocervical/transformation zone component absent. Age and/or menstrual status not provided 09/21/2020 3:54 PM EST [facility] PATHOLOGY ORDERABLES Final Result Performing Organization Address [facility] de Phone Number [facility] [address] * HPV mRNA E6/E7 (09/21/2020 3:54 PM EST) HPV nRNA E6/E7 Not Detected Not Detected [facility] Comment: Methodology: Pediatrician/Medical Doctor-Mediated Amplification This assay detects E6/E7 viral messenger RNA (mRNA) from 14 high-risk HPV types (16,18,31,33,35,39,45,51,52,56,58,59,66,68). The analytical performance characteristics of this assay have been determined by [employer]. The modifications have not been cleared or approved by the FDA. This assay has been validated pursuant to the CLIA regulations and is used for clinical purposes. For additional information, please refer to http://education.EachNet.Graduateland/WWP299r3 (This link if provided for information/ educational purposes only.) 09/21/2020 3:54 PM EST [facility] LAB BLOOD ORDERABLES Final Res ult [facility] [address] from Last 3 Months or Most Recently Relevant to Health Maintenance Insurance [facility] C3 Care Teams Water Resources Business Segment Leader Relationship Specialty Start Date End Date Farhana Jordan MD [address] [place] [phone] PCP - General Internal Medicine 02/11/23
--- OUTSIDE RECORDS SUMMARY | 2025-07-17 11:38 | XMS_ITS | Encounter Summary ---
Author Organization [employer] Address [address] [place] [address] 7 [place] [address] Care Team Providers Care Manager Statistical Name Role Phone Farhana Jordan MD Primary Care Pro vider Reason for Visit * Reason Onset Date Comments Results 06/20/2025 Encounter Details Date Type Department Care Team (Latest Contact Info) Description 06/20/2025 Results Follow-Up [facility]INE [address] [place], [place] [phone] Sheri Prakash RN [address] [place] [address] BI Mammogram Screening Tomosynthesis Bilateral Social History [...] 9:16 AM EST Telephone call placed to [facility] regarding below message. Spoke [...] 8:57 AM EST To: Farhana Velasco MD; [facility]# ----- Message ----- From: Shaina Johnston Results In Sent: 06/17/2025 4:17 PM EST To: Farhana Velasco MD documented in this encounter Plan of Treatment Not on file documented as of this encounter Visit Diagnoses Not on filedocumented in this encounter Additional Health Concerns Assessment Noted Time PHQ-9 Depression Total Score: 2 09/30/19 25 2:43 PM EST documented as of this encounter Care Teams Manager Statistical Relationship Specialty Start Date End Date Farhana Jordan MD [address] [place] [address] PCP - General Internal Medicine 02/11/23 documented as of this encounter
--- OUTSIDE RECORDS SUMMARY | 2025-07-17 11:38 | XMS_ITS | Encounter Summary ---
Author Organization [employer] Address [address] [place] [address] Care Team Providers Care Corporate Executive Name Role Phone Farhana Jordan MD Primary Care Pro vider Reason for Visit * Reason Onset Date Comments Nurse Triage 06/01/2023 Encounter Details Date Type Department Care Team ([facility] st Contact Info) Description 06/01/2023 Telephone [facility] [address] [place], [place] [phone] Farhana Jordan MD 230 [place] [address] Nurse Triage Social History Tobacco Use Types [...] documented as of this encounter Care Teams Corporate Executive Relationship Specialty Start Date End Date Farhana Jordan MD [address] [place] [phone] PCP - General Internal Medicine 02/11/23 documented as of this encounter
--- OUTSIDE RECORDS SUMMARY | 2025-07-17 11:38 | XMS_ITS | Encounter Summary ---
Author Organization [employer] Address [address] [place] [address] [place] [address] Care Team Providers Care Development Expert Name Role Phone Nancy Francis Primary Care Provider [phone] Farhana Jordan MD Primary Care Pro vider [...] on filedocumented in this encounter Care Teams Development Expert Relationship Specialty Start Date End Date Nancy Francis FNP [address] [place] [address] PCP - General Family Medicine 04/14/22 02/10/23 Farhana Jordan MD 230 [place] [address] PCP - General Internal Medicine 02/11/23 documented as of this encounter
== END 2025-07-17 09:57 | disposition home or self-care (01) ==
PROVIDERS: PCP Student in an Organized Health Care Education/Training Program; Visit Provider Surgery
DX: N63.20 Unspecified lump in the left breast, unspecified quadrant (principal)
CPT/HCPCS: 99203

== ENCOUNTER → 2025-07-17 09:39 | Outpatient (BNVA) | payer MEDICAID, SELFPAY | PROVIDERS: PCP Student in an Organized Health Care Education/Training Program; Visit Provider Surgery | DX: N63.20 Unspecified lump in the left breast, unspecified quadrant (principal) | CPT/HCPCS: 99202 ==

== ENCOUNTER → 2025-07-20 08:00 | Outpatient (BNV) | payer MEDICAID, SELFPAY | PROVIDERS: PCP Student in an Organized Health Care Education/Training Program; Visit Provider Internal Medicine | DX: N63.21 Unspecified lump in the left breast, upper outer quadrant (principal) | CPT/HCPCS: 19083; 77065 ==

== ENCOUNTER 2025-07-20 08:17 | Outpatient (REF) | payer MEDICAID, SELFPAY ==
--- NOTE | ~2025-07-20 | MM_ITS ---
PROCEDURE: ULTRASOUND-GUIDED LEFT BREAST BIOPSY CLINICAL INFORMATION: Hypoechoic solid mass at 2:00 5 cm from the nipple here for ultrasound-guided core needle biopsy. COMPARISON: There is on PACS. TECHNIQUE: The details of the procedure, as well as the risks, benefits, and alternatives to the procedure were explained to the patient in detail and all of her questions were answered, after which, written informed consent was obtained. PROCEDURE: Prior to the procedure, sonography revealed hypoechoic oval solid mass at 2:00 5 cm from the nipple.. The procedure was explained to the patient, including discussion of the risks and benefits, and written informed consent was obtained. A preprocedural time out was performed to confirm the pateint identity with multiple identifiers as well as the side, site of the procedure to be performed. The lesion intended for biopsy was targeted and the skin of the left breast was then prepped and draped in the usual sterile fashion. Using sonographic guidance, sterile technique, and 1% lidocaine without epinephrine for local anesthesia, a total of 5 cores were obtained through the targeted area with a 14-gauge biopsy needle biopsy device. At the completion of tissue sampling, a single coil metallic clip was deposited at the biopsy site. An appropriate sample was obtained. The postprocedure 2-view direct digital mammogram reveals satisfactory positioning of the biopsy clip. The patient tolerated the procedure well and, after assuring adequate hemostasis, was discharged in good condition after reviewing postbiopsy breast care instructions. Final pathology results are pending. MM/MM tomosynthesis diagnostic LT IMPRESSION: 1. Uncomplicated sonographically-guided core biopsy of the left breast. The 2-view direct digital postprocedure mammogram reveals satisfactory positioning of the biopsy clip. 2. Final pathology results are pending. A separate report with final recommendations will be issued once these results are made available. Electronically signed by: Julia Mccarthy DO 07/20/2025 09:47 AM EST
--- OUTSIDE RECORDS SUMMARY | 2025-07-20 08:32 | XMS_ITS | Encounter Summary ---
Author Organization [employer] Address [address] [place] [address] Care Team Providers Care Cable Splicer Assistant Name Role Phone Farhana Jordan MD Primary Care Pro vider Reason for Visit * Reason Onset Date Comments Nurse Triage 06/01/2023 Encounter Details Date Type Department Care Team ([facility] st Contact Info) Description 06/01/2023 Telephone [facility] [address] [place], [place] [phone] Farhana Jordan MD 230 [place] [address] Nurse Triage Social History Tobacco Use Types [...] documented as of this encounter Care Teams Cable Splicer Assistant Relationship Specialty Start Date End Date Farhana Jordan MD [address] [place] [address] PCP - General Internal Medicine 02/11/23 documented as of this encounter
--- OUTSIDE RECORDS SUMMARY | 2025-07-20 08:32 | XMS_ITS | Encounter Summary ---
Author Organization [employer] Address [address] [place] [address] [place] [address] Care Team Providers Care Under Sheriff Name Role Phone Nancy Francis Primary Care Provider [phone] Farhana Jordan MD Primary Care Pro vider [...] on filedocumented in this encounter Care Teams Under Sheriff Relationship Specialty Start Date End Date Nancy Francis FNP 230 [place] [address] PCP - General Family Medicine 04/14/22 02/10/23 Farhana Jordan MD [address] [place] [address] PCP - General Internal Medicine 02/11/23 documented as of this encounter
--- OUTSIDE RECORDS SUMMARY | 2025-07-20 08:32 | XMS_ITS | Encounter Summary ---
Author Organization [employer] Address [address] [place] [address] Care Team Providers Care Production Assembly Supervisor Name Role Phone Farhana Jordan MD Primary Care Pro vider Reason for Visit * Reason Onset Date Comments DERM 11/04/2024 Encounter Details Date Type Department Care Team ([facility] st Contact Info) Description 11/04/2024 Telephone [facility] [address] [place], [place] [phone] Farhana Jordan MD 230 [place] [address] DERM Social History Tobacco Use Types Packs/Day [...] callback as she will like to R/S [phone] documented in this encounter Plan of Treatment Not on file documented as of this encounter Visit Diagnoses Not on filedocumented in this encounter Additional Health Concerns Assessment Noted Time PHQ-9 Depression Total Score: 2 09/30/19 25 2:43 PM EST documented as of this encounter Care Teams Production Assembly Supervisor Relationship Specialty Start Date End Date Farhana Jordan MD [address] [place] [address] PCP - General Internal Medicine 02/11/23 documented as of this encounter
--- OUTSIDE RECORDS SUMMARY | 2025-07-20 08:33 | XMS_ITS | Encounter Summary ---
Author Organization [employer] Address [address] [place] [address] 7 [place] [address] Care Team Providers Care Shuttlecock Assembler Name Role Phone Farhana Jordan MD Primary Care Pro vider Reason for Visit * Reason Onset Date Comments Results 06/20/2025 Encounter Details Date Type Department Care Team (Latest Contact Info) Description 06/20/2025 Results Follow-Up [facility] 230 [place], [place] [phone] Sheri Prakash RN [address] [place] [address] BI Mammogram Screening Tomosynthesis Bilateral Social History [...] 9:16 AM EST Telephone call placed to [facility] regarding below message. Spoke with [...] 8:57 AM EST To: Farhana Velasco MD; [facility]# ----- Message ----- From: Shaina Johnston [...] documented as of this encounter Care Teams Shuttlecock Assembler Relationship Specialty Start Date End Date Farhana Jordan MD [address] [place] [address] PCP - General Internal Medicine 02/11/23 documented as of this encounter
--- OUTSIDE RECORDS SUMMARY | 2025-07-20 08:33 | XMS_ITS | Clinical Summary ---
Author Organization [employer] Address [address] [place] [address] [address] [place] [address] Care Team Providers Care Fisheries Diver Name Role Phone Farhana Jordan MD Primary [...] our pharmacy by pt request. -Referred to political director for annual eye exam - pending to [...] in completing HPV vaccination series. -Referred to political director today for annual eye exam Bilateral bunions 03/24/2023 Assessment & Plan (04/25/2023 12:23 PM EDT): Bilateral bunions causing pain. -Advise to avoid high heels and tight shoes. -Referred to it network administrator - pt pending to call for apt. Assessment & Plan (03/24/2023 6:23 AM EDT): Bilateral bunions causing pain. -Advise to avoid high heels and tight shoes. -Referred to it network administrator today. Resolved Problems Problem Noted Date Diagnosed Date Resolved Date Tinea manus 09/02/2024 04/03/2025 Assessment & Plan (09/03/2024 9:28 AM EST): Apply medication as prescribed Encounters Date Type Department Care Team Description 06/20/2025 Results Follow-Up [facility] MEDICINE [address] [place] [address] Sheri Prakash RN BI Mammogram Screening Tomosynthesis Bilateral 06/14/2025 Orders Only [facility] MEDICINE [address] [place] [address] Farhana Jordan MD 05/26/2025 10:30 AM EDT Office Visit [facility] [place] [address] Drea Rodriguez MD Folliculitis (Primary Dx) 05/26/2025 Travel from Last 3 Months Immunizations Immunization Administration [...] Additional history exists Influenza Vaccine (#1) 2025 2, 06/07/2020, 05/17/2020 Diagnostic Breast Imaging 08/11/2025 07/12/2025 Cervical Cancer Screening 09/21/2025 HPV/Cotest 09/21/2025 [...] AM EST Narrative 07/12/2025 12:21 PM EST [facility] [place], [place] [address] Ultrasound Report Signed Patient: Omero Cheng MR#: [id number] : 1980 Acct:[id number] Age/Sex: 44 / F ADM Date: 07/12/25 Loc: HO.MAMMO Attending Dr: Farhana Velasco MD Ordering Physician: Farhana Jordan MD Date of Service: 07/12/25 Procedure(s): US Breast LT Limited Mamm Only Accession Number(s): [id number] cc: Farhana Jordan MD Reason for Exam: [...] by: Julia Mccarthy DO 07/12/2025 12:18 PM [facility] Dictated By: Julia Mccarthy DO Signed By: <Electronically signed by Julia Mccarthy DO in OV> 07/12/25 1218 DD/ 1121 TD/TT: 07/12/25 1143 Door Paneler: Procedure Note Donotuseinterpreter, Image - [facility] [address] [place], [place] [address] Ultrasound Report Signed Patient: Omero ChengMR#: [id number] : 1980Acct:[id number] Age/Sex: 44 / FADM Date: 07/12/25 Loc: HO.MAMMO Attending Dr: Farhana Velasco MD Ordering Physician: Farhana Jordan MD Date of Service: 07/12/25 Procedure(s): US Breast LT Limited Mamm Only Accession Number(s): [id number] cc: Farhana Jordan MD Reason for Exam: [...] 07/12/25 1218 DD/ 1121 TD/TT: 07/12/25 1143 Door Paneler: us Farhana Velasco MD IMG US PROCEDURES Final Result * BI Mammogram Diagnostic Tomosynthesis added left (07/12/2025 11:00 AM EST) Anatomical Region Laterality Modality Breast Left Mammography 07/12/2025 11:0 0 AM EST Narrative 07/12/2025 12:21 PM EST [facility] [address] [place] [address] Mammography Report Signed Patient: Omero Cheng MR#: [id number] : 1980 Acct:[id number] Age/Sex: 44 / F ADM Date: 07/12/25 Loc: [facility] Attending Dr: Farhana Velasco MD Ordering Physician: Farhana Jordan MD Re sults: 4Suspicious Date of Service: 07/12/25 Follow Up: Biopsy Recommend ed Procedure(s): MM tomosynthesis added views L Accession Number(s): [id number] cc: Farhana Jordan MD Reason For Exam: [...] by: Julia Mccarthy DO 07/12/2025 12:18 PM [facility] Dictated By: Julia Mccarthy DO Signed By: <Electronically signed by Julia Mccarthy DO in OV> 07/12/25 1218 DD/ 1100 TD/TT: 07/12/25 1120 Door Paneler: Procedure Note Donotuseinterpreter, Image - 07/12/2025 [facility] [address] [place] [address] [place], [place] [address] Mammography Report Signed Patient: Omero ChengMR#: [id number] : 1980Acct:[id number] Age/Sex: 44 / FADM Date: 07/12/25 Loc: HO.MAMMO Attending Dr: Farhana Velasco MD Ordering Physician: Farhana Jordan sults: 4Suspicious Date of Service: 07/12/25Follow Up: Biopsy Recommend ed Procedure(s): MM tomosynthesis added views L Accession Number(s): [id number] cc: Farhana Jordan MD Reason For Exam: [...] 07/12/25 1218 DD/ 1100 TD/TT: 07/12/25 1120 Door Paneler: us Farhana Velasco MD IMG BI PROCEDURES Final Result * BI Mammogram Screening Tomosynthesis Bilateral (06/14/2025 12:02 PM EDT) Anatomical Region Laterality Modality Breast Bilateral Mammography 06/14/2025 12:0 2 PM EDT Narrative 06/17/2025 4:16 PM EDT [facility] [address] [place] [address] Mammography Report Signed Patient: Omero Cheng MR#: [id number] : 1980 Acct:[id number] Age/Sex: 44 / F ADM Date: 06/14/25 Loc: HO.MAMMO Attending Dr: Farhana Velasco MD Ordering Physician: Farhana Jordan MD Results: 0Incomplete- Need Additional Imaging Evaluation Date of Service: 06/14/25 Follow Up: Additional Imagi ng Procedure(s): MM tomosynthesis screening BI Accession Number(s): [id number] cc: Farhana Jordan MD Reason For Exam: Z12.31 EXAMINATION: MM SCREENING DIGITAL BREAST TOMOSYNTHESIS, BILATERAL CLINICAL INFORMATION: Screening. Asymptomatic. Status post right breast ultrasound-guided needle core biopsy on October 30, 2017 at [facility]; pathology results showed breast tissue and skeletal [...] 06/17/25 1613 DD/ 1202 TD/TT: 06/14/25 1226 Door Paneler: Procedure Note Donotuseinterpreter, Image - [facility] [address] [place] [address] Mammography Report Signed Patient: Omero Cheng#: [id number] : 1980Acct:[id number] Age/Sex: 44 / FADM Date: 06/14/25 Loc: HO.MAMMO Attending Dr: Farhana Velasco MD Ordering Physician: Farhana Jordan MD Results: 0Incomplete- Need Additional Imaging Evaluation Date of Service: 06/14/25Follow Up: Additional Imagi ng Procedure(s): MM tomosynthesis screening BI Accession Number(s): [id number] cc: Farhana Jordan MD Reason For Exam: Z12.31 EXAMINATION: MM SCREENING DIGITAL BREAST TOMOSYNTHESIS, BILATERAL CLINICAL INFORMATION: Screening. Asymptomatic. Status post right breast ultrasound-guided needle core biopsy on October 30, 2017 at [facility]; pathology results showed breast tissue and skeletal [...] 06/17/25 1613 DD/ 1202 TD/TT: 06/14/25 1226 Door Paneler: us Farhana Velasco MD IMG BI PROCEDURES Edited Result - Final * Hepatitis C Antibody with Reflex to HCV, RNA, Quantitative, Real-Time PCR (09/19/2024 11:38 AM EST) Hepatitis C Antibody Nonreactive Nonreactive [facility] Comment:Antibodies to HCV no t detected; does not exclude early acuteHCV infection. Blood Venous blood specimen / Unknown 09/19/2024 11:38 AM EST 09/19/2024 1:19 PM EST us Farhana Velasco MD LAB BLOOD ORDERAB LES Final Result Performing Organization Address [facility] Co de Phone Number [facility] [address] [place] [phone] * HIV-1/2 Antigen and Antibodies, Fourth Generation, with Reflexes (09/19/2024 11:38 AM EST) Pathologist [facility] HIV AB/AG Nonreactive Nonreactive [facility] Comment:HIV-1 p24 Ag and/or HIV-1/HIV-2 Ab not detected.A test result that is nonreactive does not exclude thepossibility of exposure to or infection with HIV-1 and/orHIV-2. Nonreactive results in this assay for individualswith prior exposure to HIV-1 and/or HIV-2 may be due toantigen and antibody levels that are below the limit ofdetection of this assay.The [employer] HIV Ag/Ab Combo assay result andsupplemental assay results should be interpreted inconjunction with the patient's clinical presentation,history and other laboratory results. If the results areinconsistent with clinical evidence, additional testing issuggested to confirm the result. Blood Venous blood specimen / Unknown 09/19/2024 11:38 AM EST 09/19/2024 1:19 PM EST us Farhana Velasco MD LAB BLOOD ORDERAB LES Final Result Performing Organization Address [facility] Co de Phone Number [facility] [address] [place] [phone] * THINPREP PAP (09/21/2020 3:54 PM EST) Pathologist [facility] Clinical Information: None given [facility] [...] along with historic and current clinical information. Labor Expediter : SEE COMMENT [facility] Comment: MXD, CT (ASCP) CT screening location: [place] [address] Interpretation/R esult: Negative for intraepithelial lesion or malignancy. [facility] LMP: NONE GIVEN [facility] Prev. BX: NONE [facility]IVEN [facility] Prev. PAP: NONE GIVEN [facility] SOURCE: None given [facility] Statement Of Adequacy: SEE COMMENT [facility] Comment: Satisfactory for evaluation. Endocervical/transformation zone component absent. Age and/or menstrual status not provided 09/21/2020 3:54 PM EST [facility] LAB PATHOLOGY ORDERABLES Final Result Performing Organization Address [facility] Phone Number [facility] [address] * HPV mRNA E6/E7 (09/21/2020 3:54 PM EST) HPV nRNA E6/E7 Not Detected Not Detected [facility] Comment: Methodology: Home [employer]ist Consumer Service-Mediated Amplification This assay detects E6/E7 viral messenger RNA (mRNA) from 14 high-risk HPV types (16,18,31,33,35,39,45,51,52,56,58,59,66,68). The analytical performance characteristics of this assay have been determined by [employer]. The modifications have not been cleared or approved by the FDA. This assay has been validated pursuant to the CLIA regulations and is used for clinical purposes. For additional information, please refer to http://education.Quotte.Greekdrop/KQN182r3 (This link if provided for information/ educational purposes only.) 09/21/2020 3:54 PM EST [facility] LAB BLOOD ORDERABLES Final Res ult Performing Organization Address [facility] Phone Number [facility] [address] from Last 3 Months or Most Recently Relevant to Health Maintenance Insurance [facility] C3 Care Teams Fisheries Diver Relationship Specialty Start Date End Date Farhana Jordan MD [address] [place] [phone] PCP - General Internal Medicine 02/11/23
--- OUTSIDE RECORDS SUMMARY | 2025-07-20 08:33 | XMS_ITS | Clinical Summary ---
Author Organization [facility] Address [facility] [employer] [address] [address] Phone Care Team Providers Care Education Administrative Assistant Name Role Phone Pcp, Unknown Primary Care [...] topic Medical Devices Not on file Insurance [address] [address] [place] [address] [place] [id number] [facility] Care Teams Education Administrative Assistant Relationship Specialty Start Date End Date Pcp, Unknown PCP - General 03/14/22 Additional Source Comments The information contained in this document represents components of the legal health record. It is not the complete legal health record.[facility]
[2025-07-20] MEDS: Lidocaine HCl 1 % 20 ML VIAL 9 ML SUBCUT (09:13)
== END 2025-07-20 08:18 | disposition home or self-care (01) ==
LOC: HO.MAMMO 08:17
PROVIDERS: PCP Student in an Organized Health Care Education/Training Program; Visit Provider Surgery
DX: N63.21 Unspecified lump in the left breast, upper outer quadrant (principal)
CPT/HCPCS: 19083; 77061; 77065; 88305; A4648; J2003

== ENCOUNTER 2025-08-02 10:37 | Outpatient (AMB) | payer MEDICAID, SELFPAY ==
--- NOTE | 2025-08-02 10:44 | A.OFFVIS_ITS ---
Vital Signs 08/02/25 10:47 Height 5 ft 3 in Weight 132 lb BMI 23.4 Intake Visit Reasons: s/p US guided Bx Lt breast mass 2:00 Intake Note: Patient presents for breast biopsy results. Pt c/o; no complaints. Breast Bx: 07/20/25 Sal[place] Troll Fisher Required: No Accompanied by: Self / Same As Patient Allergies No Known Allergies Allergy (Verified 08/02/25 10:47) HPI HPI s/p US guided Bx Lt breast mass 2:00: Details: She had undergone ultrasound biopsy of a left breast mass last July 20, 2025. She tolerated procedure well and denies any significant complaints currently. [facility] Medical History (Updated 08/02/25 @ 10:47 by Jeffry Chao MD) Fibroadenoma Left breast mass Surgical History No pertinent past surgical history Social History Alcohol intake: never Patient Tobacco Use Status: Never used Tobacco Review of Systems Const Denies chills and Denies fever(s) Card Denies chest pain, Denies dyspnea and Denies dyspnea on exertion Resp Denies cough, Denies dyspnea and Denies dyspnea on exertion GI Denies hematochezia and Denies change in bowel habits Denies hematuria Musc Denies back pain and Denies limited range of motion Neuro Denies focal weakness and Denies convulsions Psych Denies depression and Denies mood swings Physical Exam Const General: comfortable and no acute distress Chest Other: No hematoma on the biopsy site on the left breast Resp Effort & Inspection: normal respiratory effort Assessment & Plan Assessment & Plan (1) Fibroadenoma: Code(s): D24.9 - Benign neoplasm of unspecified breast Category: Medical Plan: She had undergone an ultrasound biopsy of a left breast mass 2 weeks ago. Fortunately, the path report shows a fibroadenoma. She understands the benign nature of this pathology. She can otherwise follow up on a p.r.n. basis. No surgical intervention necessary at this time. Coding Level of Care Code Est Pt Level 2 (88639) Diagnoses Fibroadenoma D24.9
[2025-08-02 10:47] VITALS: BMI 23.4
--- OUTSIDE RECORDS SUMMARY | 2025-08-02 13:25 | XMS_ITS | Encounter Summary ---
Author Organization [employer] Address [address] [place] [address] Care Team Providers Care Voice Professor Name Role Phone Farhana Jordan MD Primary Care Pro vider Reason for Visit * Reason Onset Date Comments DERM 11/04/2024 Encounter Details Date Type Department Care Team ([facility] st Contact Info) Description 11/04/2024 Telephone [facility] MEDICINE [address] [place], [place] [phone] Farhana Jordan MD 230 [place] [address] DERM Social History Tobacco Use Types Packs/Day [...] callback as she will like to R/S [phone] documented in this encounter Plan of Treatment Not on file documented as of this encounter Visit Diagnoses Not on filedocumented in this encounter Additional Health Concerns Assessment Noted Time PHQ-9 Depression Total Score: 2 09/30/19 25 2:43 PM EST documented as of this encounter Care Teams Voice Professor Relationship Specialty Start Date End Date Farhana Jordan MD [address] [place] [phone] PCP - General Internal Medicine 02/11/23 documented as of this encounter
--- OUTSIDE RECORDS SUMMARY | 2025-08-02 13:25 | XMS_ITS | Encounter Summary ---
Author Organization [employer] Address [address] [place] [address] Care Team Providers Care Slate Roofer Name Role Phone Farhana Jordan MD Primary Care Pro vider Reason for Visit * Reason Onset Date Comments Nurse Triage 06/01/2023 Encounter Details Date Type Department Care Team ([facility] st Contact Info) Description 06/01/2023 Telephone [facility] MEDICINE 230 [place], [place] [phone] Farhana Jordan MD [address] [place] [address] Nurse Triage Social History Tobacco Use Types [...] documented as of this encounter Care Teams Slate Roofer Relationship Specialty Start Date End Date Farhana Jordan MD [address] [place] [phone] PCP - General Internal Medicine 02/11/23 documented as of this encounter
--- OUTSIDE RECORDS SUMMARY | 2025-08-02 13:25 | XMS_ITS | Encounter Summary ---
Author Organization [employer] Address [address] [place] [address] 7 [place] [address] Care Team Providers Care Map And Chart Mounter Name Role Phone Farhana Jordan MD Primary Care Pro vider Reason for Visit * Reason Onset Date Comments Results 06/20/2025 Encounter Details Date Type Department Care Team (Latest Contact Info) Description 06/20/2025 Results Follow-Up [facility] MEDICINE 230 [place], [place] [phone] Sheri Prakash RN [address] [place] [address] BI Mammogram Screening Tomosynthesis Bilateral Social History [...] 9:16 AM EST Telephone call placed to [facility] regarding below message. Spoke with Codie who states they recommend more imaging but they don't need anything from us. Pt is on list to be called and scheduled for further imaging this week. * Telephone Encounter - hSeri Prakash RN - 06/20/2025 9:13 AM EST ----- Message from Anastacia Evans sent at 06/19/2025 5:26 PM EST ----- Please confirm whether US order is needed or if we're all set thanks ----- Message ----- From: Otilia Chaudhry RN Sent: 06/19/2025 8:57 AM EST To: Farhana Velasco MD; [facility]# ----- Message ----- From: Shaina Johnston [...] documented as of this encounter Care Teams Map And Chart Mounter Relationship Specialty Start Date End Date Farhana Jordan MD [address] [place] [phone] PCP - General Internal Medicine 02/11/23 documented as of this encounter
--- OUTSIDE RECORDS SUMMARY | 2025-08-02 13:25 | XMS_ITS | Clinical Summary ---
Author Organization [facility] Address [facility] [employer] [address] [address] Phone Care Team Providers Care Pickling Grader Name Role Phone Pcp, Unknown Primary Care [...] topic Medical Devices Not on file Insurance [place] [address] [place] [phone] [place] [id number] [facility] Care Teams Pickling Grader Relationship Specialty Start Date End Date Pcp, Unknown PCP - General 03/14/22 Additional Source Comments The information contained in this document represents components of the legal health record. It is not the complete legal health record.[facility]
--- OUTSIDE RECORDS SUMMARY | 2025-08-02 13:25 | XMS_ITS | Clinical Summary ---
Author Organization [employer] Address [address] [place] [address] [address] [place] [address] Care Team Providers Care Supervisor Burling And Joining Name Role Phone Farhana Jordan MD Primary [...] our pharmacy by pt request. -Referred to hearing therapy director for annual eye exam - pending [...] in completing HPV vaccination series. -Referred to hearing therapy director today for annual eye exam Bilateral bunions 03/24/2023 Assessment & Plan (04/25/2023 12:23 PM EDT): Bilateral bunions causing pain. -Advise to avoid high heels and tight shoes. -Referred to palm gatherer - pt pending to call for apt. Assessment & Plan (03/24/2023 6:23 AM EDT): Bilateral bunions causing pain. -Advise to avoid high heels and tight shoes. -Referred to palm gatherer today. Resolved Problems Problem Noted Date Diagnosed Date Resolved Date Tinea manus 09/02/2024 04/03/2025 Assessment & Plan (09/03/2024 9:28 AM EST): Apply medication as prescribed Encounters Date Type Department Care Team Description 07/20/2025 Orders Only [facility] External Provider, [facility] 06/20/2025 Results Follow-Up [facility] [address] [place] [address] Sheri Prakash RN BI Mammogram Screening Tomosynthesis Bilateral 06/14/2025 Orders Only [facility] [address] [place] [address] Farhana Jordan MD 05/26/2025 10:30 AM EDT Office Visit [facility] [address] [place] [address] Drea Rodriguez MD Folliculitis (Primary Dx) 05/26/2025 [...] Influenza Vaccine (#1) 2025 2, 06/07/2020, 05/17/2020 Cervical Cancer Screening 09/21/2025 HPV/Cotest 09/21/2025 09/21/2020 Pap Smear 09/21/2025 09/21/2020 Depression Screening 09/30/2025 09/30/2024, 09/30/19 Diagnostic Breast Imaging 01/18/2026 07/20/2025, Alcohol/Substance Use Screening 04/03/2026 04/03/2025 Disability Screening [...] Associated Diagnosis Comments BI MAMMOGRAM DIAGNOSTIC TOMOSYNTHESIS LEFT Routine 07/20/2025 9:00 AM EST HEMATOXYLIN AND EOSIN STAIN Routine 07/20/2025 8:48 AM EST US BREAST NDL CORE BIOPSY LT Routine 07/20/2025 8:31 AM EST BI US BREAST LIMITED LEFT Routine 07/12/2025 [...] Maintenance Results * BI Mammogram Diagnostic Tomosynthesis Left (07/20/2025 9:00 AM EST) Anatomical Region Laterality Modality Breast Left Mammography 07/20/2025 9:00 AM EST Narrative 07/20/2025 9:50 AM EST [facility] [address] 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 Results are benign and concordant. Recommend return to annual screening. OVERALL ASSESSMENT: Not applicable. RECOMMENDATION: 1 year F/U Electronically signed by: Julia Mccarthy DO 07/27/2025 10:46 AM EST Addendum Dictated By: Julia Mccarthy DO Addendum Signed By: <Electronically signed by Julia Mccarthy DO in OV> 07/27/25 1046 Addendum Cosigned By: DD/ /09/899 TD/TT: 07/20/2512/09/913 PROCEDURE: ULTRASOUND-GUIDED LEFT BREAST BIOPSY CLINICAL INFORMATION: Hypoechoic solid mass at 2:00 5 cm from the nipple here for ultrasound-guided core needle biopsy. COMPARISON: There is on PACS. TECHNIQUE: The details of the procedure, as well as the risks, benefits, and alternatives to the procedure were explained to the patient in detail and all of her questions were answered, after which, written informed consent was obtained. PROCEDURE: Prior to the procedure, sonography revealed hypoechoic oval solid mass at 2:00 5 cm from the nipple.. The procedure was explained to the patient, including discussion of the risks and benefits, and written informed consent was obtained. A preprocedural time out was performed to confirm the pateint identity with multiple identifiers as well as the side, site of the procedure to be performed. The lesion intended for biopsy was targeted and the skin of the left breast was then prepped and draped in the usual sterile fashion. Using sonographic guidance, sterile technique, and 1% lidocaine without epinephrine for local anesthesia, a total of 5 cores were obtained through the targeted area with a 14-gauge biopsy needle biopsy device. At the completion of tissue sampling, a single coil metallic clip was deposited at the biopsy site. An appropriate sample was obtained. The postprocedure 2-view direct digital mammogram reveals satisfactory positioning of the biopsy clip. The patient tolerated the procedure well and, after assuring adequate hemostasis, was discharged in good condition after reviewing postbiopsy breast care instructions. Final pathology results are pending. MM/MM tomosynthesis diagnostic LT IMPRESSION: 1. Uncomplicated sonographically-guided core biopsy of the left breast. The 2-view direct digital postprocedure mammogram reveals satisfactory positioning of the biopsy clip. 2. Final pathology results are pending. A separate report with final recommendations will be issued once these results are made available. Electronically signed by: Julia Mccarthy DO 07/20/2025 09:47 AM EST RP Dictated By: Julia Mccarthy DO Signed By: <Electronically signed by Julia Mccarthy DO in OV> 07/20/25946 DD/ 9 TD/TT: 07/20/25913 Termite Control Servicer: Procedure Note Donotuseinterpreter, Image - 07/27/2025 [facility] [address] 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 Results are benign and concordant. Recommend return to annual screening. OVERALL ASSESSMENT: Not applicable. RECOMMENDATION: 1 year F/U Electronically signed by: Julia Mccarthy DO 07/27/2025 10:46 AM EST RP Addendum Dictated By: Julia Mccarthy DO Addendum Signed By: <Electronically signed by DO Bruno in OV> 07/27/25 1046 Addendum Cosigned By: DD/ /09/899 TD/TT: 07/20/2512/09/913 PROCEDURE: ULTRASOUND-GUIDED LEFT BREAST BIOPSY CLINICAL INFORMATION: Hypoechoic solid mass at 2:00 5 cm from the nipple here for ultrasound-guided core needle biopsy. COMPARISON: There is on PACS. TECHNIQUE: The details of the procedure, as well as the risks, benefits, and alternatives to the procedure were explained to the patient in detail and all of her questions were answered, after which, written informed consent was obtained. PROCEDURE: Prior to the procedure, sonography revealed hypoechoic oval solid mass at 2:00 5 cm from the nipple.. The procedure was explained to the patient, including discussion of the risks and benefits, and written informed consent was obtained. A preprocedural time out was performed to confirm the pateint identity with multiple identifiers as well as the side, site of the procedure to be performed. The lesion intended for biopsy was targeted and the skin of the left breast was then prepped and draped in the usual sterile fashion. Using sonographic guidance, sterile technique, and 1% lidocaine without epinephrine for local anesthesia, a total of 5 cores were obtained through the targeted area with a 14-gauge biopsy needle biopsy device. At the completion of tissue sampling, a single coil metallic clip was deposited at the biopsy site. An appropriate sample was obtained. The postprocedure 2-view direct digital mammogram reveals satisfactory positioning of the biopsy clip. The patient tolerated the procedure well and, after assuring adequate hemostasis, was discharged in good condition after reviewing postbiopsy breast care instructions. Final pathology results are pending. MM/MM tomosynthesis diagnostic LT IMPRESSION: 1. Uncomplicated sonographically-guided core biopsy of the left breast. The 2-view direct digital postprocedure mammogram reveals satisfactory positioning of the biopsy clip. 2. Final pathology results are pending. A separate report with final recommendations will be issued once these results are made available. Electronically signed by: Julia Mccarthy DO 07/20/2025 09:47 AM EST Dictated By: Julia Mccarthy DO Signed By: <Electronically signed by Julia Mccarthy DO in OV> 07/20/25946 DD/ 9 TD/TT: 07/20/25913 Termite Control Servicer: [facility] External Provider IMG BI PROCEDURES Edited Result - Final * Hematoxylin and Eosin Stain (07/20/2025 8:48 AM EST) 07/20/2025 8:48 AM EST 07/20/2025 9:51 AM EST [facility] - 07/21/2025 2:18 PM EST ----- ------- Name: Omero Cheng Age/Sex: 44/F : 1980 Unit#: [id number] Attend Dr: Jeffry Chao MD Re07/20/25 Status: DEP REF Location: HO.MAMMO Disch: ----- ------- SPEC : [id number] RECD: 07/20/25 STATUS: LONNIE MEDEIROS NUM: [id number] MISA: 07/20/25 [facility] DR: Julia Mccarthy DO ENTERED: 07/20/25 SP TYPE: Surgical OTHR DR: Jeffry Chao MD, Maria Gabriela MD ORDERED: HE Stain/2, Gross Micro L4 Diagnosis Breast, left mass at 2 o'clock, biopsy: Fibroadenoma; no atypia or malignancy identified. Clinical History Left breast mass 2 o'clock ? Fibroadenoma vs other Microscopic Description Microscopic sections reviewed. Material Received Left breast mass 2 o'clock ? Fibroadenoma vs other Gross Description Received in formalin are 4 white 0.4-1.2 cm in length elongated portions of fibrofatty soft tissue, inked blue for identification purposes, totally submitted in cassette A1. (DTL) Time in formalin: 08:51. This case was reviewed intradepartmentally. IHC S/NG Disclaimer NOTE: Unless otherwise stated, all tissue is formalin-fixed and paraffin-embedded. Some or all of the immunohistochemical tests reported herein may have been developed and their performance characteristics determined by [facility]. They have not been cleared or approved by the U.S. Food and Drug Administration (FDA). However, the FDA has determined that such clearance or approval is not necessary. This laboratory is certified under the Clinical Laboratory Improvement Amendments of 1988 (CLIA) as qualified to perform high complexity clinical laboratory testing. Copies To: Jeffry Chao MD [facility] [address] [place] [id number] CONTINUED ON NEXT PAGE ----- ------- Name: Omero Cheng Age/Sex: 44/F : 1980 Unit#: [id number] Attend Dr: Jeffry Chao MD Re07/20/25 Status: DEP REF Location: [facility] Disch: ----- ------- SPEC : [id number] RECD: 07/20/25 STATUS: LONNIE MEDEIROS NUM: [id number] MISA: 07/20/[address]: Julia Mccarthy DO ENTERED: 07/20/25-1042 SP TYPE: Surgical OTHR DR: Jeffry Chao MD, Maria Gabriela MD ORDERED: HE Stain/2, Gross Micro L4 Copies To: (Continued) Farhana Jordan MD [facility] [address] [place] [address] Julia Mccarthy DO [address] [place] [address] ----- ------- Signed (signature on file) Bobby Elaine MD 07/21/25 1418 ----- ------- END OF REPORT us Generic External Data Provider LAB BLOOD ORDERAB LES Final Result [facility] [address] [place] [address] [phone] * US BREAST NDL CORE BIOPSY LT (07/20/2025 8:31 AM EST) Anatomical Region Laterality Modality Abdomen Ultrasound 07/20/2025 8:31 AM EST Narrative 07/20/2025 9:50 AM EST [facility] [address] 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 Results are benign and concordant. Recommend return to annual screening. OVERALL ASSESSMENT: Not applicable. RECOMMENDATION: 1 year F/U Electronically signed by: Julia Mccarthy DO 07/27/2025 10:46 AM EST Addendum Dictated By: Julia Mccarthy DO Addendum Signed By: <Electronically signed by Julia Mccarthy DO in OV> 07/27/25 1046 Addendum Cosigned By: DD/ /09/830 TD/TT: 07/20/2512/09/912 PROCEDURE: ULTRASOUND-GUIDED LEFT BREAST BIOPSY CLINICAL INFORMATION: Hypoechoic solid mass at 2:00 5 cm from the nipple here for ultrasound-guided core needle biopsy. COMPARISON: There is on PACS. TECHNIQUE: The details of the procedure, as well as the risks, benefits, and alternatives to the procedure were explained to the patient in detail and all of her questions were answered, after which, written informed consent was obtained. PROCEDURE: Prior to the procedure, sonography revealed hypoechoic oval solid mass at 2:00 5 cm from the nipple.. The procedure was explained to the patient, including discussion of the risks and benefits, and written informed consent was obtained. A preprocedural time out was performed to confirm the pateint identity with multiple identifiers as well as the side, site of the procedure to be performed. The lesion intended for biopsy was targeted and the skin of the left breast was then prepped and draped in the usual sterile fashion. Using sonographic guidance, sterile technique, and 1% lidocaine without epinephrine for local anesthesia, a total of 5 cores were obtained through the targeted area with a 14-gauge biopsy needle biopsy device. At the completion of tissue sampling, a single coil metallic clip was deposited at the biopsy site. An appropriate sample was obtained. The postprocedure 2-view direct digital mammogram reveals satisfactory positioning of the biopsy clip. The patient tolerated the procedure well and, after assuring adequate hemostasis, was discharged in good condition after reviewing postbiopsy breast care instructions. Final pathology results are pending. US/US breast ndl core biopsy LT IMPRESSION: 1. Uncomplicated sonographically-guided core biopsy of the left breast. The 2-view direct digital postprocedure mammogram reveals satisfactory positioning of the biopsy clip. 2. Final pathology results are pending. A separate report with final recommendations will be issued once these results are made available. Electronically signed by: Julia Mccarthy DO 07/20/2025 09:47 AM EST Dictated By: Julia Mccarthy DO Signed By: <Electronically signed by Julia Mccarthy DO in OV> 07/20/25 0947 DD/ 0831 TD/TT: 07/20/25 0913 Termite Control Servicer: Procedure Note Donotuseinterpreter, Image - 07/27/2025 [facility] [address] 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 Results are benign and concordant. Recommend return to annual screening. OVERALL ASSESSMENT: Not applicable. RECOMMENDATION: 1 year F/U Electronically signed by: Julia Mccarthy DO 07/27/2025 10:46 AM EST Addendum Dictated By: Julia Mccarthy DO Addendum Signed By: <Electronically signed by DO Bruno in OV> 07/27/25 1046 Addendum Cosigned By: DD/ /09/830 TD/TT: 07/20/2512/09/912 PROCEDURE: ULTRASOUND-GUIDED LEFT BREAST BIOPSY CLINICAL INFORMATION: Hypoechoic solid mass at 2:00 5 cm from the nipple here for ultrasound-guided core needle biopsy. COMPARISON: There is on PACS. TECHNIQUE: The details of the procedure, as well as the risks, benefits, and alternatives to the procedure were explained to the patient in detail and all of her questions were answered, after which, written informed consent was obtained. PROCEDURE: Prior to the procedure, sonography revealed hypoechoic oval solid mass at 2:00 5 cm from the nipple.. The procedure was explained to the patient, including discussion of the risks and benefits, and written informed consent was obtained. A preprocedural time out was performed to confirm the pateint identity with multiple identifiers as well as the side, site of the procedure to be performed. The lesion intended for biopsy was targeted and the skin of the left breast was then prepped and draped in the usual sterile fashion. Using sonographic guidance, sterile technique, and 1% lidocaine without epinephrine for local anesthesia, a total of 5 cores were obtained through the targeted area with a 14-gauge biopsy needle biopsy device. At the completion of tissue sampling, a single coil metallic clip was deposited at the biopsy site. An appropriate sample was obtained. The postprocedure 2-view direct digital mammogram reveals satisfactory positioning of the biopsy clip. The patient tolerated the procedure well and, after assuring adequate hemostasis, was discharged in good condition after reviewing postbiopsy breast care instructions. Final pathology results are pending. US/US breast ndl core biopsy LT IMPRESSION: 1. Uncomplicated sonographically-guided core biopsy of the left breast. The 2-view direct digital postprocedure mammogram reveals satisfactory positioning of the biopsy clip. 2. Final pathology results are pending. A separate report with final recommendations will be issued once these results are made available. Electronically signed by: Julia Mccarthy DO 07/20/2025 09:47 AM EST RP Dictated By: Julia Mccarthy DO Signed By: <Electronically signed by Julia Mccarthy DO in OV> 07/20/2547 DD/ 0 TD/TT: 07/20/25912 Termite Control Servicer: us [facility] External Provider IMG US PROCEDURES Edited Result - Final * BI US Breast Limited Left (07/12/2025 11:21 AM EST) Anatomical Region Laterality Modality Breast Left Ultrasound 07/12/2025 11:2 1 AM EST Narrative 07/12/2025 12:21 PM EST [address] [place] [address] Ultrasound Report Signed Patient: Omero Cheng MR#: [id number] : 1980 Acct:[id number] Age/Sex: 44 / F ADM Date: 07/12/25 Loc: HO.MAMMO Attending Dr: Farhana Velasco MD Ordering Physician: Farhana Jordan MD Date of Service: 07/12/25 Procedure(s): US Breast LT Limited Mamm Only Accession Number(s): [id number] cc: Farhana Jordan MD Reason for Exam: [...] by: Julia Mccarthy DO 07/12/2025 12:18 PM [facility] Dictated By: Julia Mccarthy DO Signed By: <Electronically signed by Julia Mccarthy DO in OV> 07/12/25 1218 DD/ 1121 TD/TT: 07/12/25 1143 Termite Control Servicer: Procedure Note Donotuseinterpreter, Image - 07/17/2025 [facility] [address] [place] [address] Ultrasound Report Signed Patient: Omero ChengMR#: [id number] : 1980Acct:[id number] Age/Sex: 44 / FADM Date: 07/12/25 Loc: HO.MAMMO Attending Dr: Farhana Velasco MD Ordering Physician: Farhana Jordan MD Date of Service: 07/12/25 Procedure(s): US Breast LT Limited Mamm Only Accession Number(s): [id number] cc: Farhana Jordan MD Reason for Exam: [...] 07/12/25 1218 DD/ 1121 TD/TT: 07/12/25 1143 Termite Control Servicer: us Farhana Velasco MD IMG US PROCEDURES Final Result * BI Mammogram Diagnostic Tomosynthesis added left (07/12/2025 11:00 AM EST) Anatomical Region Laterality Modality Breast Left Mammography 07/12/2025 11:0 0 AM EST Narrative 07/12/2025 12:21 PM EST [facility] [address] [place] [address] [place] [place], [place] [address] Mammography Report Signed Patient: Omero Cheng MR#: [id number] : 1980 Acct:[id number] Age/Sex: 44 / F ADM Date: 07/12/25 Loc: HO.MATTO Attending Dr: Farhana Velasco MD Ordering Physician: Farhana Jordan MD Re sults: 4Suspicious Date of Service: 07/12/25 Follow Up: Biopsy Recommend ed Procedure(s): MM tomosynthesis added views L Accession Number(s): [id number] cc: Farhana Jordan MD Reason For Exam: [...] by: Julia Mccarthy DO 07/12/2025 12:18 PM [facility] Dictated By: Julia Mccarthy DO Signed By: <Electronically signed by Julia Mccarthy DO in OV> 07/12/25 1218 DD/ 1100 TD/TT: 07/12/25 1120 Termite Control Servicer: Procedure Note Donotuseinterpreter, Image - 07/12/2025 [facility] [address] [place], [place] [address] Mammography Report Signed Patient: Omero ChengMR#: [id number] : 1980Acct:[id number] Age/Sex: 44 / FADM Date: 07/12/25 Loc: HO.MAMMO Attending Dr: Farhana Velasco MD Ordering Physician: Farhana Jordan sults: 4Suspicious Date of Service: 07/12/25Follow Up: Biopsy Recommend ed Procedure(s): MM tomosynthesis added views L Accession Number(s): [id number] cc: Farhana Jordan MD Reason For Exam: [...] by: Julia Mccarthy DO 07/12/2025 12:18 PM [facility] Dictated By: Julia Mccarthy DO Signed By: <Electronically signed by Julia Mccarthy DO in OV> 07/12/25 1218 DD/ 1100 TD/TT: 07/12/25 1120 Termite Control Servicer: us Farhana Velasco MD IMG BI PROCEDURES Final Result * BI Mammogram Screening Tomosynthesis Bilateral (06/14/2025 12:02 PM EDT) Anatomical Region Laterality Modality Breast Bilateral Mammography 06/14/2025 12:0 2 PM EDT Narrative 06/17/2025 4:16 PM EDT [facility] [address] [place], [place] [address] Mammography Report Signed Patient: Omero Cheng MR#: [id number] : 1980 Acct:[id number] Age/Sex: 44 / F ADM Date: 06/14/25 Loc: HO.MAMMO Attending Dr: Farhana Velasco MD Ordering Physician: Farhana Jordan MD Results: 0Incomplete- Need Additional Imaging Evaluation Date of Service: 06/14/25 Follow Up: Additional Imagi ng Procedure(s): MM tomosynthesis screening BI Accession Number(s): [id number] cc: Farhana Jordan MD Reason For Exam: Z12.31 EXAMINATION: MM SCREENING DIGITAL BREAST TOMOSYNTHESIS, BILATERAL CLINICAL INFORMATION: Screening. Asymptomatic. Status post right breast ultrasound-guided needle core biopsy on October 30, 2017 at [facility]; pathology results showed breast tissue and [...] Maricruz Fonseca MD 06/17/2025 04:13 PM EDT RP Dictated By: Maricruz Fonseca MD Signed By: <Electronically signed by Maricruz Fonseca MD in OV> 06/17/25 1613 DD/ 1202 TD/TT: 06/14/25 1226 Termite Control Servicer: Procedure Note Donotuseinterpreter, Image - 06/17/2025 [facility] [address] [place], [place] [address] Mammography Report Signed Patient: Omero Cheng#: [id number] : 1980Acct:[id number] Age/Sex: 44 / FADM Date: 06/14/25 Loc: HO.MAMMO Attending Dr: Farhana Velasco MD Ordering Physician: Farhana Jordan MD Results: 0Incomplete- Need Additional Imaging Evaluation Date of Service: 06/14/25Follow Up: Additional Imagi ng Procedure(s): MM tomosynthesis screening BI Accession Number(s): [id number] cc: Farhana Jordan MD Reason For Exam: Z12.31 EXAMINATION: MM SCREENING DIGITAL BREAST TOMOSYNTHESIS, BILATERAL CLINICAL INFORMATION: Screening. Asymptomatic. Status post right breast ultrasound-guided needle core biopsy on October 30, 2017 at [facility]; pathology results showed breast tissue and [...] 06/17/25 1613 DD/ 1202 TD/TT: 06/14/25 1226 Termite Control Servicer: Farhana Velasco MD IMG BI PROCEDURES Edited Result - Final * Hepatitis C Antibody with Reflex to HCV, RNA, Quantitative, Real-Time PCR (09/19/2024 11:38 AM EST) Hepatitis C Antibody Nonreactive Nonreactive [facility] Comment:Antibodies to HCV no t detected; does not exclude early acuteHCV infection. Blood Venous blood specimen / Unknown 09/19/2024 11:38 AM EST 09/19/2024 1:19 PM EST Farhana Velasco MD LAB BLOOD ORDERAB LES Final Result Performing Organization Address [facility] Co de Phone Number [facility] [address] [place] [phone] HIV-1/2 Antigen and Antibodies, Fourth Generation, with Reflexes (09/19/2024 11:38 AM EST) HIV AB/AG Nonreactive Nonreactive [facility] Comment:HIV-1 p24 Ag and/or HIV-1/HIV-2 Ab not detected.A test result that is nonreactive does not exclude thepossibility of exposure to or infection with HIV-1 and/orHIV-2. Nonreactive results in this assay for individualswith prior exposure to HIV-1 and/or HIV-2 may be due toantigen and antibody levels that are below the limit ofdetection of this assay.The [employer] HIV Ag/Ab Combo assay result andsupplemental assay results should be interpreted inconjunction with the patient's clinical presentation,history and other laboratory results. If the results areinconsistent with clinical evidence, additional testing issuggested to confirm the result. Blood Venous blood specimen / Unknown 09/19/2024 11:38 AM EST 09/19/2024 1:19 PM EST Farhana Velasco MD LAB BLOOD ORDERAB LES Final Result Performing Organization Address [facility]/ZIP Co de Phone Number [facility] [address] [place] [phone] THINPREP PAP (09/21/2020 3:54 PM [...] along with historic and current clinical information. 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 [facility] LMP: NONE [facility] Prev. BX: NONE [facility] Prev. PAP: NONE [facility] SOURCE: None given [facility] Statement Of Adequacy: SEE COMMENT [facility] Comment: Satisfactory for evaluation. Endocervical/transformation zone component absent. Age and/or menstrual status not provided 09/21/2020 3:54 PM EST [facility] ORDERABLES Final Result Performing Organization Address [facility] Number [facility] [address] * HPV mRNA E6/E7 (09/21/2020 3:54 PM EST) HPV nRNA E6/E7 Not Detected Not Detected [facility] Comment: Methodology: [employer]-Mediated Amplification This assay detects E6/E7 viral messenger RNA (mRNA) from 14 high-risk HPV types (16,18,31,33,35,39,45,51,52,56,58,59,66,68). The analytical performance characteristics of this assay have been determined by [employer]. The modifications have not been cleared or approved by the FDA. This assay has been validated pursuant to the CLIA regulations and is used for clinical purposes. For additional information, please refer to http://education.[employer]/QPB751a3 (This link if provided for information/ educational purposes only.) 09/21/2020 3:54 PM EST [facility] BLOOD ORDERABLES Final Res ult Performing Organization Address [facility] Phone Number [facility] [address] [place] [phone] from Last 3 Months or Most Recently Relevant to Health Maintenance Insurance [facility] C3 Care Teams Supervisor Burling And Joining Relationship Specialty Start Date End Date Farhana Jordan MD [address] [place] [phone] PCP - General Internal Medicine 02/11/23
--- OUTSIDE RECORDS SUMMARY | 2025-08-02 13:25 | XMS_ITS | Encounter Summary ---
Author Organization [employer] Address [address] [place] [address] [place] [address] Care Team Providers Care Web Interface Developer Name Role Phone Nancy Francis Primary Care Provider [phone] Farhana Jordan MD Primary Care Pro vider [...] on filedocumented in this encounter Care Teams Web Interface Developer Relationship Specialty Start Date End Date Nancy Francis FNP [address] [place] [address] PCP - General Family Medicine 04/14/22 02/10/23 Farhana Jordan MD [address] [place] [address] PCP - General Internal Medicine 02/11/23 documented as of this encounter
== END 2025-08-02 10:58 | disposition home or self-care (01) ==
LOC: HO.HGS 10:38
PROVIDERS: PCP Student in an Organized Health Care Education/Training Program; Visit Provider Surgery
DX: D24.9 Benign neoplasm of unspecified breast (principal)
CPT/HCPCS: 99212

== ENCOUNTER → 2025-08-02 10:37 | Outpatient (BNVA) | payer MEDICAID, SELFPAY | PROVIDERS: PCP Student in an Organized Health Care Education/Training Program; Visit Provider Surgery | DX: D24.2 Benign neoplasm of left breast (principal) | CPT/HCPCS: 99212 ==